=== PATIENT | female | born 1945 | race Caucasian/White ===

== ENCOUNTER 2020-09-24 12:42 | Inpatient (IN) | payer MEDICARE, SELFPAY ==
[2020-09-24] VITALS (10 sets, daily range): BP systolic 141–195; BP diastolic 68–101; PULSE 60–102; RESP 10–32; TEMP 36.8; O2SAT 55–99
--- NOTE | ~2020-09-24 | CT_ITS ---
EXAMINATION: CT BRAIN AND CHEST X-RAY. CLINICAL INFORMATION: Blurry vision, AMS. COMPARISON: None TECHNIQUE: Chest 2 views. 5 mm thin axial and reformatted 2 mm thin coronal and sagittal images of brain were obtained without contrast. 686 FINDINGS: BRAIN: There is no acute intra-axial, extra-axial bleed, masses or midline shift. There is no acute infarct in evolution. The myers to white matter since is maintained. The lateral ventricles are symmetrical in size and configuration with mild prominence. There is a punctate hypodensity in the right head of the caudate nucleus likely old small lacunar infarct. Bilateral internal carotid arteries are atherosclerotic and mildly dilated at the carotid siphon. Bone windows reveal no calvarial abnormality. No scalp soft tissue abnormality seen. Bilateral paranasal sinuses and mastoid air cells are well-aerated. CHEST X-RAY: There is mild cardiomegaly with increased pulmonary vascularity suggestive of mild CHF. The lungs are expanded and clear. There is no gross bony abnormality seen. CT/CT head/brain wo con IMPRESSION: No acute intracranial process seen. Likely small lacunar infarct right caudate nucleus. Age-related mild cerebral volume loss. Cardiomegaly with CHF.
--- NOTE | ~2020-09-24 | CT_ITS ---
EXAMINATION: CT CHEST WITHOUT CONTRAST CLINICAL INFORMATION: Hypoxia. Evaluate for pneumonia. COMPARISON: Same-day chest radiograph. TECHNIQUE: Multidetector volumetric CT imaging of the chest was done. Axial MIP volume rendering provided. Sagittal and coronal reformatted images were obtained. This CT examination was performed using dose optimization techniques as appropriate, variously including the following: *Automated exposure control *Adjustment of mA and/or kV according to patient size (this includes techniques or standardized protocols for targeted exams where dose is matched to indication/reason for exam; i.e. extremities or head) *Use of iterative reconstruction technique DLP: 502 mGy-cm FINDINGS: LION TAMER: Normal. Lungs and pleural spaces: Bibasilar dependent, subsegmental atelectasis. There is no discrete pulmonary nodule or mass. The central tracheobronchial tree is patent. There is no pleural effusion or pneumothorax. Thoracic lymph nodes: There is no hilar, mediastinal or axillary lymphadenopathy. Cardiovascular, mediastinal structures and thyroid: The heart is increased in size. Mild coronary vascular calcifications. There is no pericardial effusion. The thoracic aorta is normal in diameter without evidence of aneurysm. The main pulmonary artery is normal in caliber. The visualized thyroid gland is within normal limits. The esophagus appears partially collapsed but otherwise unremarkable. Skeletal, diaphragm and chest wall: Multilevel degenerative changes of thoracic spine. No aggressive osseous lesions. The subcutaneous tissues are unremarkable. Upper abdomen: The visualized liver and spleen are normal. The proximal stomach and visualized upper abdominal bowel loops are poorly evaluated but appear unremarkable. CT/CT chest wo con IMPRESSION: Cardiomegaly. Bibasilar subsegmental dependent atelectasis. No consolidation.
--- NOTE | 2020-09-24 13:49 | ECG_ITS ---
Test Reason : WEAKNESS Blood Pressure : / mmHG Vent. Rate : 072 BPM Atrial Rate : 072 BPM P-R Int : 168 ms QRS Dur : 086 ms QT Int : 392 ms P-R-T Axes : 046 -28 030 degrees QTc Int : 429 ms Normal sinus rhythm with sinus arrhythmia Possible Left atrial enlargement Borderline ECG No previous ECGs available Referred By: Lashaun Root Electronically Signed By:SUSAN BROWN
--- NOTE | 2020-09-24 13:51 | ED_ITS ---
HPI - Altered Mental Status General Chief Complaint: Altered Mental Status Stated Complaint: eye pain Time Seen by Provider: 09/24/20 13:22 Source: patient Mode of arrival: ambulatory Limitations: no limitations History of Present Illness HPI narrative: 74 yo female with pmh Of hypertension hyperlipidemia here with complaints of right eye drainage, redness and blurry vision times 48 hours. Patient denies injury or trauma. Denies contact use. Denies headache, neck pain, dizziness, weakness, nausea, vomiting. Her at bedside patient has had confusion since yesterday, missed an appointment this morning which is changed from her baseline. There was also note from of some slurred speech per nursing but the patient and the deny this. Related Data Home Medications Medication Instructions Recorded Confirmed amlodipine 10 mg PO DAILY 09/24/20 09/24/20 carvedilol 12.5 mg PO BID 09/24/20 09/24/20 lisinopril 40 mg PO DAILY 09/24/20 09/24/20 Allergies Allergy/AdvReac Type Severity Reaction Status Date / Time No Known Allergies Allergy Verified 09/24/20 12:46 Review of Systems Review of Systems: Yes all other systems are reviewed and are negative Constitutional: Constitutional: Reports no additional constitutional complaints, Denies body ache(s), Denies chills, Denies fever(s), Denies headache(s) and Denies weakness Eyes: Eyes: Reports no additional eye complaints, Denies change in vision and Reports eye discharge Comments: Redness, blurry vision ENT: Reports system reviewed and no additional complaints, except as documented, Denies dizziness, Denies headache(s), Denies nasal congestion, Denies nasal discharge and Denies neck pain Cardiovascular: Cardiovascular: Reports no additional cardiovascular complaints, Denies chest pain, Denies leg edema and Denies dyspnea Respiratory: Respiratory: Reports no additional respiratory complaints, Denies cough and Denies dyspnea Gastrointestinal: Gastrointestinal: Reports no additional gastrointestinal complaints, Denies abdominal pain, Denies diarrhea, Denies nausea and Denies vomiting Genitourinary: Genitourinary: Reports no additional female genitourinary complaints and Denies urinary incontinence Musculoskeletal: Musculoskeletal: Reports no additional musculoskeletal complaints, Denies back pain, Denies arthralgias, Denies joint swelling, Denies neck pain, Denies numbness and Denies tingling Integumentary/Breasts: Skin/Breast: Reports system reviewed and no additional complaints, except as docu and Denies rash Neurologic: Reports system reviewed and no additional complaints, except as documented, Denies Abnormal speech present, Denies dizziness, Denies head ache(s), Denies numbness, Denies tingling and Denies weakness PMFSH Past Medical History Attestation statement: The following information was validated with the patient. Source: old records reviewed and nursing notes reviewed Medical History High cholesterol Hypertension Social History Social History Alcohol intake: never Smoking Status: Never smoker Use of substances other than those prescribed or required for medical reasons: No Advance Directives: Yes Advance Directives Information Provided: Yes Advance Directives on File: No Physical Exam Vital Signs: Vital Signs: Last Vital Signs Temp 98.3 F 09/24/20 12:44 Pulse 64 09/24/20 20:02 Resp 24 H 09/24/20 20:02 BP 157/76 H 09/24/20 20:02 Pulse Ox 96 09/24/20 20:02 Body Mass Index 0.4 Const: Other: Has been states some confusion the patient is oriented x3 Orientation/consciousness: oriented to person, oriented to place and oriented to time Limitations: no limitations HENMT: Head: Yes normal to inspection Ears: hearing grossly normal bilaterally General nose exam: Normal external nose present Face and sinus: Yes normal facial exam Mouth: Normal oral and palatal mucosa present Throat: Yes posterior oropharynx normal Eyes: Other: IOP right eye 11, left eye 13 General: appearance normal, both eyes and all related structures Visual Tripp: abnormal by confrontation (Lef t visual field normal. Right eye visual field blurry all tripp) Alignment and Position: alignment normal Periorbital: periorbital findings normal Eyelids: Yes eyelid abnormality (Erythema and swelling over the upper and lower eyelid) Conjunctivae: conjunctival abnormal (Erythema, swelling, injection, right, purulent copious drainage ) Sclerae: scleral abnormal (Swelling right) Corneas: corneas normal and fluorescein used (No corneal abrasion or foreign body) Pupils: Equal, round and reactive pupils present EOM: EOMs intact bilaterally Direct Ophthalmoscopy: normal light reflex, no photophobia, no papilledema and anterior chamber abnormal Neck: Neck: Yes normal visual inspection Chest: Chest palpation & inspection: normal inspection of the chest Resp: Effort & Inspection: normal respiratory effort Auscultation: clear to auscultation bilaterally Cardio: Rate: regular rate Rhythm: regular rhythm Peripheral pulses: Peripheral pulses 2+ throughout GI: Inspection: Yes normal to inspection Palpation (GI): Soft to palpation and nontender Auscultation: normal bowel sounds Back/Spine/Pelvis: Thoracic/Lumbar Spine: thoracic and lumbar spine normal to inspection Skin: Other: fungal rash under bilateral breast General skin exam: no rashes or lesions noted Neuro: General: oriented to person, oriented to place and oriented to time Cranial nerves: Yes Equal, round and reactive pupils present, Yes Bilaterally intact EOM present, Yes Nystagmus not present, Yes Normal facial strength present and Yes Midline tongue present Cognition (Neuro): normal cognition Speech: No Abnormal speech present Gait exam (Neuro): Normal gait present (slow but steady) Motor exam (neuro): 5/5 motor strength present throughout and Pronator motor function not present Sensory Exam: Normal double simultaneous stimulation for sensation Coordination: [id number] test normal, [id number] test normal and tandem gait normal Extrem: General: Yes normal to inspection, Yes no calf tenderness and Yes edema (1 + bilaterally. ) NIH Stroke Scale Internal: Initial- Upon Arrival Level of Consciousness: Alert Level of Consciousness Questions: Answers both questions correctly Level of Consciousness Commands: Performs both tasks correctly Best Gaze: Normal Visual: Partial hemianopia (blurriness in right eye ) Facial Palsy: Normal Motor Arm (Right): No drift Motor Arm (Left): No drift Motor Leg (Right): No drift Motor Leg (Left): No drift Limb Ataxia: Absent Sensory: Normal Best Language: No aphasia Dysarthia: Normal Extinction and Inattention: No abnormality Score: 1 Course Course Course Narrative: 74-year-old female with a past medical history of hypertension hyperlipidemia here with complaints of right eye blurriness, drainage and injection times 48 hours. Per patient has been confused over the last 48 hours which is changed from her baseline. On exam the patient is neurologically intact with no overt deficits. She does have a exam which is consistent with conjunctival injection, cerebral edema, copious drainage from the right eye with local erythema and swelling of the ey elid. Consistent with conjunctivitis. Low concern for orbital cellulitis with normal EOM. Patient tells me that she has some blurry vision in all visual tripp but is able to see my hand (fingers are unclear). ?from underlying conjunctivitis which seems more likely however with concerns from for AMS could consider acute cva. Patient is outside window for TPA. NIH 1 for visual change. Low concern for systemic infection with no leukocytosis or fever. Will need labs including blood cultures and lactic acid, chest x-ray, CT head, UA, EKG, orthostatic vital signs. 1515-nursing called me into the room as when they were doing her vital signs and noticed her oxygen saturation to be 54% with a good pleth. The patient has some mild cyanosis around her lips. She is noted have some mild tachypnea but denies feeling short of breath. She does me she has had some dyspnea on exertion for the last few weeks to months. Her chest x-ray is consistent with some mild cardiomegaly and congestion and she has a BNP of 383. No history of CHF but likely new diagnosis. Patient improved with supplemental oxygen. Will have respiratory therapy obtain ABG. Will give 40 mg of Lasix IV. COVID negative. Pending additional lab. 1615- ABG consistent with respiratory acidosis. Patient placed on BiPAP 18/5 at 50%. Spoke to Dr Jc for admission. 1720-discussion with Dr. Jc recommended CT chest, rsv/flu swab, montoya catheter for fluid management. Will admit patient and further follow. Labs show troponin which is elevated but no delta so less likely ACS. AMS for the last 24-48 hrs likely secondary to hypoxia at home and not underlying CVA. Oriented x3 here with no focal neurological deficits. MDM - Altered Mental Status MDM Narrative Medical decision making narrative: Conjunctivitis, orbital cellulitis, periorbital cellulitis, CVA versus ICH, underlying infection (pna, uti, viral syndrome), electrolyte abnormality, anemia, ACS Medical Records Attestation: I reviewed the patient's medical records. Lab Data Attestation: I reviewed the patient's lab results. Result diagrams: 09/24/20 14:34 09/24/20 16:37 Labs: Lab Results 09/24/20 09/24/20 09/24/20 Range/Units 14:34 14:34 14:34 WBC 8.3 (4.8-10.8) X10*3/uL RBC 5.36 (4.20-5.50) X10*6/uL Hgb 15.2 (12.0-16.0) g/dl Hct 52.3 H (37-47) % MCV 97.6 (80-98) fL MCH 28.4 (27.0-33.0) pg MCHC 29.1 L (31.0-35.0) g/dl RDW 14.9 (11.0-16.0) % Plt Count 111 L (160-400) X10*3/uL MPV 11.4 (9.4-12.3) fL Immature Gran % (Auto) 0.4 (0.0-0.4) % Neut % (Auto) 73.8 H (45-73) % Lymph % (Auto) 13.7 L (20-40) % [place] % (Auto) 11.3 H (2-11) % Eos % (Auto) 0.4 (0-4) % Baso % (Auto) 0.4 (0-2) % Lymph # (Auto) 1.1 L (1.2-4.9) X10*3/uL [place] # (Auto) 0.9 (0.1-1.2) X10*3/uL Eos # (Auto) 0.0 (0.0-0.4) X10*3/uL Baso # (Auto) 0.0 (0.0-0.2) X10*3/uL Abs Immat Gran (auto) 0.03 (0.00-0.03) X10*3/uL Absolute Neuts (auto) 6.2 (2.0-8.3) X10*3/uL Absolute Nucleated RBC 0.000 (0.0-0.012) X10*3/uL Nucleated RBC % (auto) 0.0 (0.0-0.2) /100WBC PT 11.7 (10.8-13.0) SEC INR 1.0 (0.9-1.1) O2 Saturation % ABG pH at Pt Temp (7.35-7.45) ABG pH (Temp Correct) (7.35-7.45) ABG pCO2 at Pt Temp (32-45) mmHg ABG pCO2 (Temp Corrct (32-45) mmHg ABG pO2 at Pt Temp (83-108) mmHg ABG pO2 (Temp Correct (83-108) ABG HCO3 (22-26) mmol/L ABG Base Excess (Actual) mmol/L Sodium (135-145) mmol/L Potassium (3.3-5.1) mmol/L Chloride (96-108) mmol/L Carbon Dioxide (22-29) mmol/L Anion Gap (12-20) BUN (9-16) mg/dL Creatinine (0.5-1.4) mg/dL Estim Creat Clear Calc Estimated GFR Random Glucose (60-115) mg/dL Lactic Acid (0.5-2.0) mmol/L Calcium (8.4-10.2) mg/dL Magnesium (1.6-2.6) mg/dL Total Bilirubin (0.0-1.0) mg/dL Direct Bilirubin (0.0-0.5) mg/dL AST (5-31) U/L ALT (0-31) U/L Alkaline Phosphatase (39-117) U/L Troponin I High Sens 116.4 H (<3.5-17.0) ng/L B-Natriuretic Peptide (<100) pg/mL Total Protein (6.5-8.0) g/dL Albumin (3.5-5.0) g/dL Urine Color Urine Appearance Urine pH (5.0-8.0) Ur Specific [place] (1.005-1.025) Urine Protein (NEG-TRACE) MG/DL Urine Glucose (UA) (NEG) MG/DL Urine Ketones (NEG) MG/DL Urine Blood (NEG) Urine Nitrite (NEG) Ur Leukocyte Esterase (NEG) Urine RBC (0) /HPF Urine WBC (0-4) /HPF Ur Squamous Epith Cells /LPF Urine Bacteria /LPF Granular Casts /LPF Coronavirus (PCR) (Negative) COVID-19 (OBEY) (Negative) COVID-19 Clin Com Influenza Type A (PCR) (Negative) Influenza Type B (PCR) (Negative) RSV RNA Qual (PCR) (Negative) 09/24/20 09/24/20 09/24/20 Range/Units 14:34 14:34 14:39 WBC (4.8-10.8) X10*3/uL RBC (4.20-5.50) X10*6/uL Hgb (12.0-16.0) g/dl Hct (37-47) % MCV (80-98) fL MCH (27.0-33.0) pg MCHC (31.0-35.0) g/dl RDW (11.0-16.0) % Plt Count (160-400) X10*3/uL MPV (9.4-12.3) fL Immature Gran % (Auto) (0.0-0.4) % Neut % (Auto) (45-73) % Lymph % (Auto) (20-40) % [place] % (Auto) (2-11) % Eos % (Auto) (0-4) % Baso % (Auto) (0-2) % Lymph # (Auto) (1.2-4.9) X10*3/uL [place] # (Auto) (0.1-1.2) X10*3/uL Eos # (Auto) (0.0-0.4) X10*3/uL Baso # (Auto) (0.0-0.2) X10*3/uL Abs Immat Gran (auto) (0.00-0.03) X10*3/uL Absolute Neuts (auto) (2.0-8.3) X10*3/uL Absolute Nucleated RBC (0.0-0.012) X10*3/uL Nucleated RBC % (auto) (0.0-0.2) /100WBC PT (10.8-13.0) SEC INR (0.9-1.1) O2 Saturation % ABG pH at Pt Temp (7.35-7.45) ABG pH (Temp Correct) (7.35-7.45) ABG pCO2 at Pt Temp (32-45) mmHg ABG pCO2 (Temp Corrct (32-45) mmHg ABG pO2 at Pt Temp (83-108) mmHg ABG pO2 (Temp Correct (83-108) ABG HCO3 (22-26) mmol/L ABG Base Excess (Actual) mmol/L Sodium (135-145) mmol/L Potassium (3.3-5.1) mmol/L Chloride (96-108) mmol/L Carbon Dioxide (22-29) mmol/L Anion Gap (12-20) BUN (9-16) mg/dL Creatinine (0.5-1.4) mg/dL Estim Creat Clear Calc Estimated GFR Random Glucose (60-115) mg/dL Lactic Acid 1.0 (0.5-2.0) mmol/L Calcium (8.4-10.2) mg/dL Magnesium (1.6-2.6) mg/dL Total Bilirubin (0.0-1.0) mg/dL Direct Bilirubin (0.0-0.5) mg/dL AST (5-31) U/L ALT (0-31) U/L Alkaline Phosphatase (39-117) U/L Troponin I High Sens (<3.5-17.0) ng/L B-Natriuretic Peptide 383 H (<100) pg/mL Total Protein (6.5-8.0) g/dL Albumin (3.5-5.0) g/dL Urine Color Urine Appearance Urine pH (5.0-8.0) Ur Specific [place] (1.005-1.025) Urine Protein (NEG-TRACE) MG/DL Urine Glucose (UA) (NEG) MG/DL Urine Ketones (NEG) MG/DL Urine Blood (NEG) Urine Nitrite (NEG) Ur Leukocyte Esterase (NEG) Urine RBC (0) /HPF Urine WBC (0-4) /HPF Ur Squamous Epith Cells /LPF Urine Bacteria /LPF Granular Casts /LPF Coronavirus (PCR) (Negative) COVID-19 (OBEY) Negative (Negative) COVID-19 Clin Com See Note Influenza Type A (PCR) (Negative) Influenza Type B (PCR) (Negative) RSV RNA Qual (PCR) (Negative) 09/24/20 09/24/20 09/24/20 Range/Units 15:55 16:08 16:37 WBC (4.8-10.8) X10*3/uL RBC (4.20-5.50) X10*6/uL Hgb (12.0-16.0) g/dl Hct (37-47) % MCV (80-98) fL MCH (27.0-33.0) pg MCHC (31.0-35.0) g/dl RDW (11.0-16.0) % Plt Count (160-400) X10*3/uL MPV (9.4-12.3) fL Immature Gran % (Auto) (0.0-0.4) % Neut % (Auto) (45-73) % Lymph % (Auto) (20-40) % [place] % (Auto) (2-11) % Eos % (Auto) (0-4) % Baso % (Auto) (0-2) % Lymph # (Auto) (1.2-4.9) X10*3/uL [place] # (Auto) (0.1-1.2) X10*3/uL Eos # (Auto) (0.0-0.4) X10*3/uL Baso # (Auto) (0.0-0.2) X10*3/uL Abs Immat Gran (auto) (0.00-0.03) X10*3/uL Absolute Neuts (auto) (2.0-8.3) X10*3/uL Absolute Nucleated RBC (0.0-0.012) X10*3/uL Nucleated RBC % (auto) (0.0-0.2) /100WBC PT (10.8-13.0) SEC INR (0.9-1.1) O2 Saturation 96.0 % ABG pH at Pt Temp 7.26 L (7.35-7.45) ABG pH (Temp Correct) 7.26 L (7.35-7.45) ABG pCO2 at Pt Temp 81 H* (32-45) mmHg ABG pCO2 (Temp Corrct 83 H* (32-45) mmHg ABG pO2 at Pt Temp 97 (83-108) mmHg ABG pO2 (Temp Correct 100 (83-108) ABG HCO3 37 H (22-26) mmol/L ABG Base Excess (Actual) 6.9 mmol/L Sodium 148 H (135-145) mmol/L Potassium 5.1 (3.3-5.1) mmol/L Chloride 106 (96-108) mmol/L Carbon Dioxide 35 H (22-29) mmol/L Anion Gap 12 (12-20) BUN 33 H (9-16) mg/dL Creatinine 1.01 (0.5-1.4) mg/dL Estim Creat Clear Calc 87.5 Estimated GFR 54 Random Glucose 104 (60-115) mg/dL Lactic Acid (0.5-2.0) mmol/L Calcium 10.0 (8.4-10.2) mg/dL Magnesium 2.1 (1.6-2.6) mg/dL Total Bilirubin 0.4 (0.0-1.0) mg/dL Direct Bilirubin 0.2 (0.0-0.5) mg/dL AST 34 H (5-31) U/L ALT 22 (0-31) U/L Alkaline Phosphatase 58 (39-117) U/L Troponin I High Sens (<3.5-17.0) ng/L B-Natriuretic Peptide (<100) pg/mL Total Protein 6.8 (6.5-8.0) g/dL Albumin 3.9 (3.5-5.0) g/dL Urine Color YELLOW Urine Appearance CLEAR Urine pH 5.5 (5.0-8.0) Ur Specific [place] >= 1.030 H (1.005-1.025) Urine Protein 3+ H (NEG-TRACE) MG/DL Urine Glucose (UA) NEG (NEG) MG/DL Urine Ketones NEG (NEG) MG/DL Urine Blood 2+ H (NEG) Urine Nitrite NEG (NEG) Ur Leukocyte Esterase NEG (NEG) Urine RBC 1-4 (0) /HPF Urine WBC 0 (0-4) /HPF Ur Squamous Epith Cells 2+ /LPF Urine Bacteria NONE /LPF Granular Casts 1-4 /LPF Coronavirus (PCR) (Negative) COVID-19 (OBEY) (Negative) COVID-19 Clin Com Influenza Type A (PCR) (Negative) Influenza Type B (PCR) (Negative) RSV RNA Qual (PCR) (Negative) 09/24/20 09/24/20 Range/Units 17:26 17:28 WBC (4.8-10.8) X10*3/uL RBC (4.20-5.50) X10*6/uL Hgb (12.0-16.0) g/dl Hct (37-47) % MCV (80-98) fL MCH (27.0-33.0) pg MCHC (31.0-35.0) g/dl RDW (11.0-16.0) % Plt Count (160-400) X10*3/uL MPV (9.4-12.3) fL Immature Gran % (Auto) (0.0-0.4) % Neut % (Auto) (45-73) % Lymph % (Auto) (20-40) % [place] % (Auto) (2-11) % Eos % (Auto) (0-4) % Baso % (Auto) (0-2) % Lymph # (Auto) (1.2-4.9) X10*3/uL [place] # (Auto) (0.1-1.2) X10*3/uL Eos # (Auto) (0.0-0.4) X10*3/uL Baso # (Auto) (0.0-0.2) X10*3/uL Abs Immat Gran (auto) (0.00-0.03) X10*3/uL Absolute Neuts (auto) (2.0-8.3) X10*3/uL Absolute Nucleated RBC (0.0-0.012) X10*3/uL Nucleated RBC % (auto) (0.0-0.2) /100WBC PT (10.8-13.0) SEC INR (0.9-1.1) O2 Saturation % ABG pH at Pt Temp (7.35-7.45) ABG pH (Temp Correct) (7.35-7.45) ABG pCO2 at Pt Temp (32-45) mmHg ABG pCO2 (Temp Corrct (32-45) mmHg ABG pO2 at Pt Temp (83-108) mmHg ABG pO2 (Temp Correct (83-108) ABG HCO3 (22-26) mmol/L ABG Base Excess (Actual) mmol/L Sodium (135-145) mmol/L Potassium (3.3-5.1) mmol/L Chloride (96-108) mmol/L Carbon Dioxide (22-29) mmol/L Anion Gap (12-20) BUN (9-16) mg/dL Creatinine (0.5-1.4) mg/dL Estim Creat Clear Calc Estimated GFR Random Glucose (60-115) mg/dL Lactic Acid (0.5-2.0) mmol/L Calcium (8.4-10.2) mg/dL Magnesium (1.6-2.6) mg/dL Total Bilirubin (0.0-1.0) mg/dL Direct Bilirubin (0.0-0.5) mg/dL AST (5-31) U/L ALT (0-31) U/L Alkaline Phosphatase (39-117) U/L Troponin I High Sens 120.1 H (<3.5-17.0) ng/L B-Natriuretic Peptide (<100) pg/mL Total Protein (6.5-8.0) g/dL Albumin (3.5-5.0) g/dL Urine Color Urine Appearance Urine pH (5.0-8.0) Ur Specific [place] (1.005-1.025) Urine Protein (NEG-TRACE) MG/DL Urine Glucose (UA) (NEG) MG/DL Urine Ketones (NEG) MG/DL Urine Blood (NEG) Urine Nitrite (NEG) Ur Leukocyte Esterase (NEG) Urine RBC (0) /HPF Urine WBC (0-4) /HPF Ur Squamous Epith Cells /LPF Urine Bacteria /LPF Granular Casts /LPF Coronavirus (PCR) NEGATIVE (Negative) COVID-19 ([facility]BEY) (Negative) COVID-19 Clin Com Influenza Type A (PCR) NEGATIVE (Negative) Influenza Type B (PCR) NEGATIVE (Negative) RSV RNA Qual (PCR) NEGATIVE (Negative) Imaging Data Chest x-ray: Attestation: I personally reviewed and interpreted this imaging study as follows: Radiologist's impression: CHEST X-RAY: There is mild cardiomegaly with increased pulmonary vascularity suggestive of mild CHF. The lungs are expanded and clear. There is no gross bony abnormality seen. CT scan - head: Attestation: I personally reviewed and interpreted this imaging study as f alcon: Radiologist's impression: FINDINGS: BRAIN: There is no acute intra-axial, extra-axial bleed, masses or midline shift. There is no acute infarct in evolution. The myers to white matter since is maintained. The lateral ventricles are symmetrical in size and configuration with mild prominence. There is a punctate hypodensity in the right head of the caudate nucleus likely old small lacunar infarct. Bilateral internal carotid arteries are atherosclerotic and mildly dilated at the carotid siphon. Bone windows reveal no calvarial abnormality. No scalp soft tissue abnormality seen. Bilateral paranasal sinuses and mastoid air cells are well-aerated. ct chest: Attestation: I personally reviewed and interpreted this imaging study as follows: Radiologist's impression: MPRESSION: Cardiomegaly. Bibasilar subsegmental dependent atelectasis. No consolidation. ECG Data ECG #1: Attestation: I personally reviewed and interpreted this ECG as follows: ECG interpretation date: 09/24/20 ECG interpretation time: 14:15 Interpretation: Normal sinus rhythm with sinus arrhythmia, rate of 72, normal CO, normal QRS, QTC 429, flipped T-wave in lead 1 only Critical Care Time Critical Care Time Critical Care Time: Yes Total Critical Care Time: 60 Attestation: Re-evaluations, discussion with candles pourer, management of respiratory acidosis with noninvasive ventilation Discharge Plan Discharge Clinical Impression: Acute bacterial conjunctivitis, Hypoxia, Acute dyspnea, Elevated brain kenney riuretic peptide (BNP) level, Elevated troponin Patient Disposition: Admitted As Inpatient
[2020-09-24] MEDS: Tetracaine HCl/PF 0.5% Oph Sol 4 ML DROPS 1 DROP EYE-RIGHT (14:24)
[2020-09-24] MEDS: Fluorescein Sodium STRIP 1 STRIP EYE-RIGHT (14:24)
[2020-09-24 14:43] LABS: MANUAL DIFF FLAG NO
[2020-09-24 14:47] LABS: Basophils Percent Auto 0.4 % (0-2); Eosinophils Percent Auto 0.4 % (0-4); Hematocrit 52.3 % (37-47); Hemoglobin 15.2 g/dl (12.0-16.0); Imm Gran Abs Auto 0.03 X10*3/uL (0.00-0.03); Imm Gran Pct Auto 0.4 % (0.0-0.4); Lymphocytes Absolute Auto 1.1 X10*3/uL (1.2-4.9); Lymphocytes Percent Auto 13.7 % (20-40); Mean Corpuscular HGB Conc 29.1 g/dl (31.0-35.0); Mean Corpuscular Hemoglobin 28.4 pg (27.0-33.0); Mean Corpuscular Volume 97.6 fL (80-98); Mean Platelet Volume 11.4 fL (9.4-12.3); Monocytes Absolute Auto 0.9 X10*3/uL (0.1-1.2); Monocytes Percent Auto 11.3 % (2-11); Neutrophils Absolute Auto 6.2 X10*3/uL (2.0-8.3); Neutrophils Percent Auto 73.8 % (45-73); Platelet Count 111 X10*3/uL (160-400); Red Blood Count 5.36 X10*6/uL (4.20-5.50); Red Cell Distribution Width 14.9 % (11.0-16.0); White Blood Count 8.3 X10*3/uL (4.8-10.8)
[2020-09-24 14:56] LABS: Prothrombin Time 11.7 SEC (10.8-13.0)
[2020-09-24 15:09] LABS: B Type Natriuretic Peptide 383 pg/mL (<100)
[2020-09-24 15:11] LABS: Troponin-I High Sensitivity 116.4 ng/L (<3.5-17.0)
[2020-09-24 15:14] LABS: COVID-19 Test Negative (Negative)
--- NOTE | 2020-09-24 15:22 | PC.NURSE ---
pct alerting this rn to pt spo2 50-55% on ra. pt denies feeling sob, denies cp. pt appears to have cyanotic lips. placed on 4l nc w little improvement, placed on nb 100% o2 and pt slowly up to 96-97%. alert and oriented, second iv established. awaiting further orders. provider aware and at bedside.
[2020-09-24] MEDS: Furosemide 40 MG/4 ML VIAL IVPUSH (15:56)
[2020-09-24 16:07] LABS: ABG Refer to POC result
[2020-09-24 16:08] LABS: ABG Base Excess 6.9 mmol/L; ABG HCO3 37 mmol/L (22-26); ABG pCO2 81 mmHg (32-45); ABG pCO2 TC 83 mmHg (32-45); ABG pH 7.26 (7.35-7.45); ABG pH TC 7.26 (7.35-7.45); ABG pO2 97 mmHg (83-108); ABG pO2 TC 100 (83-108)
[2020-09-24 16:20] LABS: Glucose Urine UA NEG (NEG); Leukocyte Esterase Urine NEG (NEG); Nitrite Urine NEG (NEG); PH 5.5 (5.0-8.0); Specific Gravity - Urine >= 1.030 (1.005-1.025); Urine Blood 2+ (NEG); Urine Ketones NEG (NEG); Urine Protein 3+ MG/DL (NEG-TRACE)
[2020-09-24 16:34] LABS: Appearance Urine CLEAR; Color Urine YELLOW
[2020-09-24 17:05] LABS: Alanine Aminotransferase 22 U/L (0-31); Albumin Level 3.9 g/dL (3.5-5.0); Alkaline Phosphatase 58 U/L (39-117); Anion Gap 12 (12-20); Aspartate Amino Transferase 34 U/L (5-31); Bilirubin Direct 0.2 mg/dL (0.0-0.5); Bilirubin Total 0.4 mg/dL (0.0-1.0); Blood Urea Nitrogen 33 mg/dL (9-16); Carbon Dioxide 35 mmol/L (22-29); Chloride 106 mmol/L (96-108); Creatinine Clr Calc Pharmacy 87.5; Estimated Glomerular Filt Rate 54; Glucose Random 104 mg/dL (60-115); Magnesium 2.1 mg/dL (1.6-2.6); Potassium 5.1 mmol/L (3.3-5.1); Sodium 148 mmol/L (135-145); Total Protein 6.8 g/dL (6.5-8.0)
[2020-09-24 17:05] LABS: Squamous Epithelial Cell Urine 2+ /LPF; WBC Urine 0 /HPF (0-4)
--- NOTE | 2020-09-24 17:07 | PC.NURSE ---
pipe insulator at bedside for fast echo. plan for montoya, ct chest and resp panel.
[2020-09-24] MEDS: Erythromycin Base 0.5% Oph Oin 1 GM TUBE 1 CM EYE-RIGHT (18:13)
[2020-09-24] MEDS: Heparin Sodium,Porcine 5,000 UNIT/ML VIAL 5000 UNIT SUBCUT ×2 (18:13→22:14)
[2020-09-24 18:24] LABS: Troponin-I High Sensitivity 120.1 ng/L (<3.5-17.0)
[2020-09-24 18:31] LABS: Influenza A PCR NEGATIVE (Negative); Influenza B PCR NEGATIVE (Negative); Resp Syncy Virus RNA Qual PCR NEGATIVE (Negative); SARS COV2 PCR INHOUSE NEGATIVE (Negative)
--- NOTE | 2020-09-24 19:39 | PC.NURSE ---
paint technician at bedside, unable to obtain labs x 2. RT called for CT scan as pt remains on bipap at this time.
[2020-09-24] MEDS: Albuterol/Iprat 2.5/0.5MG 3 ML AMPUL.NEB INHALE (19:48)
--- NOTE | 2020-09-24 19:50 | PC.NURSE ---
Repeat labs obtained, RT at bedside for ABG. Plan for a CT as soon as CT is available. VSS at this time. Family at bedside, continue to monitor.
[2020-09-24 20:07] LABS: ABG Base Excess 8.7 mmol/L; ABG HCO3 37 mmol/L (22-26); ABG pCO2 71 mmHg (32-45); ABG pCO2 TC 70 mmHg (32-45); ABG pH 7.33 (7.35-7.45); ABG pH TC 7.33 (7.35-7.45); ABG pO2 92 mmHg (83-108); ABG pO2 TC 91 (83-108)
[2020-09-24 20:07] LABS: ABG Refer to POC result
[2020-09-24 20:29] LABS: B Type Natriuretic Peptide 350 pg/mL (<100)
[2020-09-24 20:37] LABS: Troponin-I High Sensitivity 98.5 ng/L (<3.5-17.0)
--- NOTE | 2020-09-24 20:55 | PC.NURSE ---
Off to CT on hospital bed, per RT to place pt on a NRB for CT.
--- NOTE | 2020-09-24 21:03 | PC.NURSE ---
Pt returns from CT. RT called to place pt back on bipap. Grading Machine Operator at bedside for eval.
[2020-09-24 21:12] LABS: Erythrocyte Sedimentation Rate 5 MM/HR (0-20)
[2020-09-24] MEDS: Famotidine/PF 20 MG/2 ML VIAL IVPUSH (22:14)
--- NOTE | 2020-09-24 22:44 | PM.CCHP ---
History of Present Illness Date of Service: 09/24/20 <Yanira Sotelo PA-C - Last Filed: 09/24/20 23:14> Chief Complaint: AMS <Yanira Sotelo PA-C - Last Filed: 09/24/20 23:14> Patient is a 74-year-old female with a PMHX of HTN, HLD who came to the ER today with complaints right eye drainage, redness some blurry vision for the past 2 days. Patient denies trauma or injury. Patient states she does not use contacts. Her was at the bedside an stated that the patient has been confused since yesterday and missed an appointment this morning which is a change from her baseline. There is a nursing note that the noted some slurred speech from his but both the patient and her denied this. Physical exam by the ED CARDIOVASCULAR DISEASE SPECIALIST was unremarkable except for the right eye conjunctiva injection, drainage but no overt cellulitis. Patient was neurologically fully intact with no deficits. At that point, patient's vitals were rechecked and she was noted to be hypoxic With an SpO2 at 54% with a good pleth, on room air. CARDIOVASCULAR DISEASE SPECIALIST noted patient had mild cyanosis around her lips and some tachypnea but denies feeling short of breath currently but states she has had some GRAVES over the past few months. Physical exam by the ED CARDIOVASCULAR DISEASE SPECIALIST was remarkable for the right eye conjunctiva injection and scleral swelling, drainage but no overt cellulitis. IOP right eye 11, left eye 13, no corneal abrasion. Patient was neurologically fully intact with no deficits. 1+ pitting edema bilaterally, fungal rash under bilateral breasts Labs remarkable for sodium of 148, carbon dioxide of 35, BUN 33 Patient was given 40 of Lasix, ABG showed respiratory acidosis (7.26/81/97/100/37/6.9) patient was placed on BiPAP at 8/15 at 50%. Patient is COVID negative, will get CT of the chest, RSV/flu swab and a Valdivia catheter for fluid management. Trend troponin as first one was elevated at 120.1. Pt will be brought to the ICU for further management. <Yanira Sotelo PA-C - Last Filed: 09/24/20 23:14> Review of Systems Review of Systems: Yes all other systems are reviewed and are negative <Yanira Sotelo PA-C - Last Filed: 09/24/20 23:14> [facility] Past Medical History Medical History: Medical History High cholesterol Hypertension <Yanira Sotelo PA-C - Last Filed: 09/24/20 23:14> Social History Social History: Social History (Updated 09/24/20 @ 23:23 by Portia Barrera RN) Household Members: Spouse Housing: House Are you a primary care center manager to a significant other at home: No Do you presently have visiting nurse or other home services: No Alcohol intake: never Smoking Status: Never smoker Use of substances other than those prescribed or required for medical reasons: No Currently Displaying Signs/Symptoms of Drug Intoxication Withdrawal: No Have you been hit, kicked, punched, or otherwise hurt by someone within the past year? If so, by whom?: No Do you feel safe in your current relationship?: No Is there a partner from a previous relationship who is making you feel unsafe now?: No Are you made to feel afraid or neglected: No Advance Directives: Yes Advance Directives Information Provided: No Advance Directives on File: No Advance Directives Date on File: 09/24/20 Do you have thoughts of harming others: None Do you have a plan to hurt others: No Plan Recently lost weight without trying: No <Yanira Sotelo PA-C - Last Filed: 09/24/20 23:14> Meds Allergies/Adverse reactions: Allergies Allergy/AdvReac Type Severity Reaction Status Date / Time No Known Allergies Allergy Verified 09/24/20 12:46 <Yanira Sotelo PA-C - Last Filed: 09/24/20 23:14> Active Medications: Current Medications Generic Name Dose Route Start Last Admin Trade Name Freq PRN Reason Stop Dose Admin Albuterol/Ipratropium 3 ml 09/24/20 20:00 09/24/20 19:48 Albuterol/Iprat 2.5/0.5mg 3 Ml Ampul.Neb INHALE 3 ml RQ4H CANDIE Administration Erythromycin 1 cm 09/24/20 18:00 09/24/20 18:13 Erythromycin Base 0.5% Oph Oin 1 Gm Tube EYE-RIGHT 1 cm BID@0800,1800 CANDIE Administration Famotidine 20 mg 09/24/20 21:00 09/24/20 22:14 Famotidine/Pf 20 Mg/2 Ml Vial IVPUSH 20 mg BID CANDIE Administration Heparin Sodium (Porcine) 5,000 unit 09/24/20 18:00 09/24/20 22:14 Heparin Sodium,Porcine 5,000 Unit/Ml Vial SUBCUT 5,000 unit Q8H CANDIE Administration Nystatin 1 appl 09/25/20 09:00 Nystatin Powder 15 Gm Bottle TOPICAL BID [facility] Protocol Pharmacy Consult 1 each 09/24/20 13:49 Consult Rx Perform Med Rec MISCELLANE ONCE PRN Consult order <LYNN Farah Last Filed: 09/24/20 23:14> Home medications: Home Medications Medication Instructions Recorded Confirmed Last Taken Type amlodipine 10 mg PO DAILY 09/24/20 09/24/20 09/23/20 History carvedilol 12.5 mg PO BID 09/24/20 09/24/20 09/23/20 History lisinopril 40 mg PO DAILY 09/24/20 09/24/20 09/23/20 History <Yanira Sotelo PA-C - Last Filed: 09/24/20 23:14> Physical Exam Vital Signs: Vital Signs: Last Vital Signs Temp 98.3 F 09/24/20 12:44 Pulse 102 H 09/24/20 22:00 Resp 27 H 09/24/20 22:00 BP 149/77 H 09/24/20 22:00 Pulse Ox 96 09/24/20 22:00 Body Mass Index 0.4 <Yanira Sotelo PA-C - Last Filed: 09/24/20 23:14> Const: General: cooperative, healthy appearing, comfortable and no acute distress <LYNN Farah Last Filed: 09/24/20 23:14> Nutritional Appearance: obese <LYNN Farah Last Filed: 09/24/20 23:14> Orientation/consciousness: patient oriented x3 <LYNN Farah Last Filed: 09/24/20 23:14> Limitations: no limitations <LYNN Farah Last Filed: 09/24/20 23:14> HENMT: Head: Yes normal to inspection, Yes normocephalic and Yes atraumatic <Yanira Sotelo PA-C - Last Filed: 09/24/20 23:14> Ears: hearing grossly normal bilaterally <Yanira Sotelo PA-C - Last Filed: 09/24/20 23:14> General nose exam: Normal external nose present <SHANTANU FarahC - Last Filed: 09/24/20 23:14> Face and sinus: Yes normal facial exam <SHANTANU FarahC - Last Filed: 09/24/20 23:14> Eyes: Alignment and Position: alignment normal <Yanira Sotelo PA-C - Last Filed: 09/24/20 23:14> Eyelids: Yes eyelid abnormality (swelling right eye) <SHANTANU FarahC - Last Filed: 09/24/20 23:14> Conjunctivae: conjunctival abnormal right conjunctival injection and discharge <SHANTANU FarahaDvid - Last Filed: 09/24/20 23:14> Pupils: Equal, round and reactive pupils present <SHANTANU FarahC - Last Filed: 09/24/20 23:14> EOM: EOMs intact bilaterally <Yanira Sotelo PA-C - Last Filed: 09/24/20 23:14> Neck: Neck: Yes normal visual inspection and Yes full ROM <SHANTANU FarahDavid - Last Filed: 09/24/20 23:14> Resp: Effort & Inspection: normal respiratory effort and able to speak in complete sentences <Yanira Sotelo PA-C - Last Filed: 09/24/20 23:14> Auscultation: clear to auscultation bilaterally <Yanira Sotelo PA-C - Last Filed: 09/24/20 23:14> Cardio: Rate: regular rate <Yanira Sotelo PA-C - Last Filed: 09/24/20 23:14> Rhythm: regular rhythm <Yanira Sotelo PA-C - Last Filed: 09/24/20 23:14> GI: Inspection: Yes obesity <Yanira Sotelo PA-C - Last Filed: 09/24/20 23:14> Palpation (GI): Soft to palpation and nontender <Yanira Sotelo PA-C - Last Filed: 09/24/20 23:14> Neuro: General: patient oriented x3 <Yanira Sotelo PA-C - Last Filed: 09/24/20 23:14> Cranial nerves: Yes Equal, round and reactive pupils present <Yanira Sotelo PA-C - Last Filed: 09/24/20 23:14> Extrem: General: Yes pedal edema (1+ pitting bilateral) <Yanira Soetlo PA-C - Last Filed: 09/24/20 23:14> Results Labs CBC and Chem 7: : 09/25/20 05:36 09/25/20 05:36 <Yanira Sotelo PA-C - Last Filed: 09/24/20 23:14> Labs: Laboratory Results - last 24 hr 09/24/20 09/24/20 09/24/20 14:34 14:34 14:34 MCV 97.6 MCH 28.4 MCHC 29.1 L RDW 14.9 Plt Count 111 L MPV 11.4 Immature Gran % (Auto) 0.4 Neut % (Auto) 73.8 H Lymph % (Auto) 13.7 L [place] % (Auto) 11.3 H Eos % (Auto) 0.4 Baso % (Auto) 0.4 Lymph # (Auto) 1.1 L [place] # (Auto) 0.9 Eos # (Auto) 0.0 Baso # (Auto) 0.0 Abs Immat Gran (auto) 0.03 Absolute Neuts (auto) 6.2 Absolute Nucleated RBC 0.000 Nucleated RBC % (auto) 0.0 ESR PT 11.7 INR 1.0 O2 Saturation ABG pH at Pt Temp ABG pH (Temp Correct) ABG pCO2 at Pt Temp ABG pCO2 (Temp Corrct ABG pO2 at Pt Temp ABG pO2 (Temp Correct ABG HCO3 ABG Base Excess (Actual) Anion Gap Estim Creat Clear Calc Estimated GFR Random Glucose Lactic Acid Calcium Magnesium Total Bilirubin Direct Bilirubin AST ALT Alkaline Phosphatase Troponin I High Sens 116.4 H B-Natriuretic Peptide Total Protein Albumin Urine Color Urine Appearance Urine pH Ur Specific [place] Urine Protein Urine Glucose (UA) Urine Ketones Urine Blood Urine Nitrite Ur Leukocyte Esterase Urine RBC Urine WBC Ur Squamous Epith Cells Urine Bacteria Granular Casts Coronavirus (PCR) COVID-19 (OBEY) COVID-19 Clin Com Influenza Type A (PCR) Influenza Type B (PCR) RSV RNA Qual (PCR) 09/24/20 09/24/20 09/24/20 14:34 14:34 14:39 MCV MCH MCHC RDW Plt Count MPV Immature Gran % (Auto) Neut % (Auto) Lymph % (Auto) [place] % (Auto) Eos % (Auto) Baso % (Auto) Lymph # (Auto) [place] # (Auto) Eos # (Auto) Baso # (Auto) Abs Immat Gran (auto) Absolute Neuts (auto) Absolute Nucleated RBC Nucleated RBC % (auto) ESR PT INR O2 Saturation ABG pH at Pt Temp ABG pH (Temp Correct) ABG pCO2 at Pt Temp ABG pCO2 (Temp Corrct ABG pO2 at Pt Temp ABG pO2 (Temp Correct ABG HCO3 ABG Base Excess (Actual) Anion Gap Estim Creat Clear Calc Estimated GFR Random Glucose Lactic Acid 1.0 Calcium Magnesium Total Bilirubin Direct Bilirubin AST ALT Alkaline Phosphatase Troponin I High Sens B-Natriuretic Peptide 383 H Total Protein Albumin Urine Color Urine Appearance Urine pH Ur Specific [place] Urine Protein Urine Glucose (UA) Urine Ketones Urine Blood Urine Nitrite Ur Leukocyte Esterase Urine RBC Urine WBC Ur Squamous Epith Cells Urine Bacteria Granular Casts Coronavirus (PCR) COVID-19 (OBEY) Negative COVID-19 Clin Com See Note Influenza Type A (PCR) Influenza Type B (PCR) RSV RNA Qual (PCR) 09/24/20 09/24/20 09/24/20 15:55 16:08 16:37 MCV MCH MCHC RDW Plt Count MPV Immature Gran % (Auto) Neut % (Auto) Lymph % (Auto) [place] % (Auto) Eos % (Auto) Baso % (Auto) Lymph # (Auto) [place] # (Auto) Eos # (Auto) Baso # (Auto) Abs Immat Gran (auto) Absolute Neuts (auto) Absolute Nucleated RBC Nucleated RBC % (auto) ESR PT INR O2 Saturation 96.0 ABG pH at Pt Temp 7.26 L ABG pH (Temp Correct) 7.26 L ABG pCO2 at Pt Temp 81 H* ABG pCO2 (Temp Corrct 83 H* ABG pO2 at Pt Temp 97 ABG pO2 (Temp Correct 100 ABG HCO3 37 H ABG Base Excess (Actual) 6.9 Anion Gap 12 Estim Creat Clear Calc 87.5 Estimated GFR 54 Random Glucose 104 Lactic Acid Calcium 10.0 Magnesium 2.1 Total Bilirubin 0.4 Direct Bilirubin 0.2 AST 34 H ALT 22 Alkaline Phosphatase 58 Troponin I High Sens B-Natriuretic Peptide Total Protein 6.8 Albumin 3.9 Urine Color YELLOW Urine Appearance CLEAR Urine pH 5.5 Ur Specific [place] >= 1.030 H Urine Protein 3+ H Urine Glucose (UA) NEG Urine Ketones NEG Urine Blood 2+ H Urine Nitrite NEG Ur Leukocyte Esterase NEG Urine RBC 1-4 Urine WBC 0 Ur Squamous Epith Cells 2+ Urine Bacteria NONE Granular Casts 1-4 Coronavirus (PCR) COVID-19 (OBEY) COVID-19 Clin Com Influenza Type A (PCR) Influenza Type B (PCR) RSV RNA Qual (PCR) 09/24/20 09/24/20 09/24/20 17:26 17:28 19:50 MCV MCH MCHC RDW Plt Count MPV Immature Gran % (Auto) Neut % (Auto) Lymph % (Auto) [place] % (Auto) Eos % (Auto) Baso % (Auto) Lymph # (Auto) [place] # (Auto) Eos # (Auto) Baso # (Auto) Abs Immat Gran (auto) Absolute Neuts (auto) Absolute Nucleated RBC Nucleated RBC % (auto) ESR PT INR O2 Saturation ABG pH at Pt Temp ABG pH (Temp Correct) ABG pCO2 at Pt Temp ABG pCO2 (Temp Corrct ABG pO2 at Pt Temp ABG pO2 (Temp Correct ABG HCO3 ABG Base Excess (Actual) Anion Gap Estim Creat Clear Calc Estimated GFR Random Glucose Lactic Acid Calcium Magnesium Total Bilirubin Direct Bilirubin AST ALT Alkaline Phosphatase Troponin I High Sens 120.1 H 98.5 H B-Natriuretic Peptide Total Protein Albumin Urine Color Urine Appearance Urine pH Ur Specific [place] Urine Protein Urine Glucose (UA) Urine Ketones Urine Blood Urine Nitrite Ur Leukocyte Esterase Urine RBC Urine WBC Ur Squamous Epith Cells Urine Bacteria Granular Casts Coronavirus (PCR) NEGATIVE COVID-19 (OBEY) COVID-19 Clin Com Influenza Type A (PCR) NEGATIVE Influenza Type B (PCR) NEGATIVE RSV RNA Qual (PCR) NEGATIVE 09/24/20 09/24/20 09/24/20 19:50 19:50 19:58 MCV MCH MCHC RDW Plt Count MPV Immature Gran % (Auto) Neut % (Auto) Lymph % (Auto) [place] % (Auto) Eos % (Auto) Baso % (Auto) Lymph # (Auto) [place] # (Auto) Eos # (Auto) Baso # (Auto) Abs Immat Gran (auto) Absolute Neuts (auto) Absolute Nucleated RBC Nucleated RBC % (auto) ESR 5 PT INR O2 Saturation 96.0 ABG pH at Pt Temp 7.33 L ABG pH (Temp Correct) 7.33 L ABG pCO2 at Pt Temp 71 H* ABG pCO2 (Temp Corrct 70 H* ABG pO2 at Pt Temp 92 ABG pO2 (Temp Correct 91 ABG HCO3 37 H ABG Base Excess (Actual) 8.7 Anion Gap Estim Creat Clear Calc Estimated GFR Random Glucose Lactic Acid Calcium Magnesium Total Bilirubin Direct Bilirubin AST ALT Alkaline Phosphatase Troponin I High Sens B-Natriuretic Peptide 350 H Total Protein Albumin Urine Color Urine Appearance Urine pH Ur Specific [place] Urine Protein Urine Glucose (UA) Urine Ketones Urine Blood Urine Nitrite Ur Leukocyte Esterase Urine RBC Urine WBC Ur Squamous Epith Cells Urine Bacteria Granular Casts Coronavirus (PCR) COVID-19 (OBEY) COVID-19 Clin Com Influenza Type A (PCR) Influenza Type B (PCR) RSV RNA Qual (PCR) <Yanira Sotelo PA-C - Last Filed: 09/24/20 23:14> Imaging Radiologist's Impressions: Impressions Chest X-Ray 09/24/20 13:50 IMPRESSION: No acute intracranial process seen. Likely small lacunar infarct right caudate nucleus. Age-related mild cerebral volume loss. Cardiomegaly with CHF. Head CT 09/24/20 13:50 IMPRESSION: No acute intracranial process seen. Likely small lacunar infarct right caudate nucleus. Age-related mild cerebral volume loss. Cardiomegaly with CHF. Chest CT 09/24/20 17:16 IMPRESSION: Cardiomegaly. Bibasilar subsegmental dependent atelectasis. No consolidation. <LYNN Farah Last Filed: 09/24/20 23:14> Assessment and Plan (1) Acute bacterial conjunctivitis: Status: Acute <Yanira Sotelo PA-C - Last Filed: 09/24/20 23:14> (2) Acute dyspnea: Status: Acute <Yanira Sotelo PA-C - Last Filed: 09/24/20 23:14> (3) Elevated brain natriuretic peptide (BNP) level: Status: Acute <Yanira Sotelo PA-C - Last Filed: 09/24/20 23:14> (4) Elevated troponin: Status: Acute <Yanira Sotelo PA-C - Last Filed: 09/24/20 23:14> (5) Obesity hypoventilation syndrome: Status: Acute <LYNN Farah Last Filed: 09/24/20 23:14>
[2020-09-24 23:30] LABS: Anion Gap 17 (12-20); Blood Urea Nitrogen 34 mg/dL (9-16); Calcium 9.4 mg/dL (8.4-10.2); Carbon Dioxide 27 mmol/L (22-29); Chloride 108 mmol/L (96-108); Estimated Glomerular Filt Rate 57; Glucose Random 99 mg/dL (60-115); Potassium 5.5 mmol/L (3.3-5.1); Sodium 146 mmol/L (135-145)
[2020-09-25] VITALS (27 sets, daily range): BP systolic 115–180; BP diastolic 52–92; PULSE 56–107; RESP 11–27; TEMP 36.5–37.3; O2SAT 91–100
--- NOTE | 2020-09-25 | ECG_ITS ---
Test Reason : HIGH HR Blood Pressure : / mmHG Vent. Rate : 070 BPM Atrial Rate : 070 BPM P-R Int : 154 ms QRS Dur : 094 ms QT Int : 380 ms P-R-T Axes : 042 -09 017 degrees QTc Int : 410 ms Normal sinus rhythm Possible Left atrial enlargement Cannot exclude old Anterior infarct , age undetermined Abnormal ECG No previous ECGs available Referred By: Lukas Eldridge Electronically Signed By:SUSAN BROWN
[2020-09-25] MEDS: Albuterol/Iprat 2.5/0.5MG 3 ML AMPUL.NEB INHALE ×6 (00:49→20:05)
[2020-09-25] MEDS: Insulin Regular, Human 100 UNIT/ML 3 ML VIAL IVPUSH (02:31)
[2020-09-25 02:36] LABS: Glucose, Whole Blood 86 mg/dL (60-115)
--- NOTE | 2020-09-25 04:33 | PC.NURSE ---
PT ADMITTED TO ICU AT APPROX 2200. A&OX4. AFEBRILE. NSR/SB ON TELE, HR 50-60s. SBP WNL. LS DIMINISHED. ON BIPAP, TOLERATING WELL. CURRENTLY ON AVAPS SETTINGS- RATE 12, Vt 600, EPAP 8, MIN P 10, MAX P 35, FIO2 50%. RR 20s, SpO2 99%. MARTINEZ IN PLACE, UOP 30 ML/HR. PT EDUCATED AND AWARE OF PLAN OF CARE. OFFERS NO COMPLAINTS. SKIN INTACT- FUNGAL INFECTION TO B/L BREASTS/GROIN/FOLDS. NYSTATIN POWDER ORDERED.
[2020-09-25 05:49] LABS: VBG Base Excess 8.5 mmol/L; VBG HCO3 36 mmol/L (22-26); VBG pCO2 66 mmHg; VBG pH 7.34 (7.32-7.43); VBG pO2 68 mmHg
[2020-09-25 05:49] LABS: Venous Blood Gas Refer to POC result
[2020-09-25 05:53] LABS: Hemoglobin 13.3 g/dl (12.0-16.0); Imm Gran Abs Auto 0.01 X10*3/uL (0.00-0.03); Imm Gran Pct Auto 0.2 % (0.0-0.4); MANUAL DIFF FLAG SCAN; PLT CLUMP 1; Red Cell Distribution Width 14.6 % (11.0-16.0); SCAN SMEAR FLAG 1
[2020-09-25 05:55] LABS: Basophils Percent Auto 0.4 % (0-2); Eosinophils Absolute Auto 0.1 X10*3/uL (0.0-0.4); Eosinophils Percent Auto 1.3 % (0-4); Hematocrit 46.4 % (37-47); Lymphocytes Percent Auto 18.9 % (20-40); Mean Corpuscular HGB Conc 28.7 g/dl (31.0-35.0); Mean Corpuscular Hemoglobin 27.9 pg (27.0-33.0); Mean Corpuscular Volume 97.3 fL (80-98); Mean Platelet Volume 11.5 fL (9.4-12.3); Monocytes Absolute Auto 0.7 X10*3/uL (0.1-1.2); Monocytes Percent Auto 13.7 % (2-11); Neutrophils Absolute Auto 3.6 X10*3/uL (2.0-8.3); Neutrophils Percent Auto 65.5 % (45-73); Red Blood Count 4.77 X10*6/uL (4.20-5.50); White Blood Count 5.4 X10*3/uL (4.8-10.8)
[2020-09-25 05:59] LABS: INTERNATIONAL NORM RATIO 1.1 (0.9-1.1); Prothrombin Time 12.7 SEC (10.8-13.0)
[2020-09-25 06:02] LABS: Partial Thromboplastin Time 30.3 SEC (24.1-38.0)
[2020-09-25 06:15] LABS: Anion Gap 14 (12-20); Blood Urea Nitrogen 35 mg/dL (9-16); Calcium 9.4 mg/dL (8.4-10.2); Carbon Dioxide 32 mmol/L (22-29); Chloride 107 mmol/L (96-108); Creatinine Clr Calc Pharmacy 93.9; Estimated Glomerular Filt Rate 58; Glucose Random 82 mg/dL (60-115); Phosphorus 3.4 mg/dL (2.7-4.5); Platelet Count 83 X10*3/uL (160-400); Potassium 4.8 mmol/L (3.3-5.1); Sodium 148 mmol/L (135-145)
[2020-09-25 06:16] LABS: B Type Natriuretic Peptide 184 pg/mL (<100)
[2020-09-25 06:44] LABS: SLIDE REVIEW VERIFIED
--- NOTE | 2020-09-25 06:47 | CA_ITS ---
Transthoracic Echocardiogram Patient (Last, First, Middle): Margie Braxton R Gender: Female Date of : 1945 Age: 74 Procedure Date: 09/25/2020 Procedure Type: Transthoracic Echocardiogram Location: ICU Height: 165.1 cm Weight: 113.4 kg BSA: 2.17 m2 Heart Rate: bpm BP: 120 / 62 mmHg [place]raw Hand: TANYA Referring MD: Matthew Jc MD Symptoms: hypoxic resp failure Study Quality: Technically Difficult ECG Rhythm: Sinus Conclusions: - The left ventricular systolic function is normal. The visually estimated ejection fraction is between 65-70%. - E/E prime ratio is >15, consistent with elevated filling pressures. Evidence suggests grade I (mild) diastolic dysfunction. - There is mild mitral annular calcification. - Gradients across aortic valve are increased but likely from increased stroke volume. No significant aortic stenosis. - Mild pulmonary hypertension is present. - The inferior vena cava is mildly dilated and collapses greater than 50% with inspiration. Findings Procedure Information Contrast agent, definity, is being given per protocol without apparent complications. Left Ventricle Normal left ventricular cavity size. There is mildly increased left ventricular wall thickness. The left ventricular systolic function is normal. The visually estimated ejection fraction is between 65-70%. There is no evidence of regional wall motion abnormalities. E/E prime ratio is >15, consistent with elevated filling pressures. Evidence suggests grade I (mild) diastolic dysfunction. Right Ventricle Normal right ventricular cavity size and systolic function. Atria Both atria are normal in size. Aortic Valve There is a normal trileaflet aortic valve. There is mild calcification of the aortic valve. The peak aortic velocity is 2.99 m/s with a calculated peak gradient of 36 mmHg. The mean gradient is 17 mmHg. The aortic valve area is 1.88 cm2. There is no aortic valve regurgitation. Gradients across aortic valve are increased but likely from increased stroke volume. No significant aortic stenosis. Mitral Valve There is mild mitral annular calcification. There is trace mitral valve regurgitation. There is no mitral valve stenosis. Pulmonic Valve The pulmonic valve was not well visualized. Tricuspid Valve Normal tricuspid valve structure. There is trace tricuspid valve regurgitation. The right ventricular systolic pressure is 46 mmHg. Mild pulmonary hypertension is present. Great Vessels Top normal ascending aortic size at 3.7 cm. Venous The inferior vena cava is mildly dilated and collapses greater than 50% with inspiration. Pericardium/Pleural There is no evidence of pericardial effusion. Prior Study Comparison No prior study available for comparison. Measurements 2D Linear Measurements IVSd: 1.14 0.6-0.9/0.6-1.0 cm LVIDd: 4.89 3.9-5.3/4.2-5.9 cm LVIDd Index: 2.25 2.4-3.2/2.2-3.1 cm/m2 LVIDs: 2.79 2.0-3.6 cm LVPWd: 1.15 0.7-1.1 cm Ao Root: 3.10 2.1-3.5 cm LA Diam: 3.90 2.7-3.8/3.0-4.0 cm LAIDs Index: 1.80 1.5-2.3 cm/m2 LV Mass: 263.34 67-162/88-224 g LV Mass Index: 121.36 43-95/49-115 g/m2 LVOT Diam: 2.00 3.0+(-)1.3 cm 2D Systolic Function EF 4C: 62.90 >55% EF 2C: 60.20 >55% EF BiP: 60.70 >55% Mitral Valve MV Pk E: 1.00 MV PK A: 1.69 MV Decel Time: 490.00 E/A: 0.60 E'Lateral: 5.33 E'Medial: 5.44 E/E' Med: 18.30 E/E' Lat: 18.70 PHT: 143.00 MVA PHT: 1.54 Decel [place]: 2.04 Aortic Valve AoV Pk José [place]: 2.99 AoV Mn José Antonio: 1.83 AoV VTI: 0.52 AoV Pk Grad: 36.00 Aov Mn Grad: 17.00 CODIE Cont.VTI: 1.88 LVOT LVOT Pk [place]: 1.50 LVOT Mn José Antonio: 0.93 LVOT VTI: 0.31 LVOT Pk Grad: 9.00 LVOT Mn Grad: 4.00 LVOT Diam: 2.00 LVOT Area: 3.14 Diastolic Function MV Pk E: 1.00 MV Pk A: 1.69 E/A: 0.60 E'Medial: 5.44 E/E' Med: 18.30 E' Laterial: 5.33 E/E' Lat: 18.70 Tricuspid Valve TR Pk José Antonio: 3.08 TR Pk Grad: 38.00 RA Press: 8.00 RVSP: 46.00 Great Vessels Aorta Ao Root-2D: 3.10 2.0-3.7 cm Ao Asc: 3.70 2.1-3.4 cm Updated in Other Vendor System with Status of Final Tomas Torres MD electronically signed on 09/25/2020 2:52:33 PM with status of Final
[2020-09-25] MEDS: Heparin Sodium,Porcine 5,000 UNIT/ML VIAL 5000 UNIT SUBCUT ×2 (08:55→18:07)
[2020-09-25] MEDS: Famotidine/PF 20 MG/2 ML VIAL IVPUSH ×2 (08:55→21:54)
[2020-09-25] MEDS: Nystatin Powder 15 GM BOTTLE 1 APPL TOPICAL ×2 (08:56→22:05)
[2020-09-25] MEDS: Erythromycin Base 0.5% Oph Oin 1 GM TUBE 1 CM EYE-RIGHT ×2 (09:05→18:07)
--- NOTE | 2020-09-25 10:38 | P.PNCC_ITS ---
Subjective Subjective Date of Service: 09/25/20 Interval History: 74-year-old moderately obese female underlying hypertension no lung history and no cardiac history came in for conjunctivitis of her right IIA and was noted to be hypoxic blood gas revealed that she was an acute on chronic hypercarbic and hypoxic respiratory failure without evidence of an infectious process and she had a predominant right heart failure issue in other words cor pulmonale and she was tachypneic me in in some respiratory distress with some diaphragmatic expiratory effort and had significant peripheral edema as well mild pre renal azotemia bedside echo showing concentric left ventricular hypertrophy with preserved ejection fraction 55% but borderline left ventricular the excuse me right ventricular dimension no pericardial disease no primary valve disease the so there was evidence of diastolic dysfunction and cor pulmonale but did not have a particularly dilated inferior vena cava so is confusing and in addition but the fluid overload she had hypernatremia at 1:48 a.m. which was also a confusing issue so there may be some intrinsic renal disease possibly nephrosclerosis and I chose to place her on BiPAP overnight will allow her to auto diurese and she did for about a L and felt tremendously b radha with much less respiratory effort no accessory muscle use this morning comfortable enough to go on oxygen alone and in and be able to eat so at this point in 0 clearly she has got obesity hypoventilation and sleep apnea and needs to be qualified for device at home as an outpatient but we can start her now on nocturnal BiPAP on the AVAPS mode looking for a tidal volume of about 600 cc with an expiratory pressure of about 8 cm water and hopefully she will continue to diurese as a result but her current pCO2 is down from 83 to 66 and she probably chronically lives between 55 and 60 so we getting near her at this point I also noted that she was thrombocytopenic at 111,000 on presentation and today down to 83,000 and I question whether not lisinopril might be at fault so I withheld all antihypertensives and I would probably choose to use an ARB rather than lisinopril and see if the thrombocytopenia improves Physical Exam Vital Signs: Vital Signs: Last Vital Signs Temp 98.3 F 09/24/20 12:44 Pulse 69 09/25/20 09:59 Resp 20 09/25/20 09:59 BP 138/60 09/25/20 09:59 Pulse Ox 93 09/25/20 09:59 Body Mass Index 0.4 Const: Other: Awake alert oriented x3 and nonfocal neurologically Diminish neck veins and good bilateral carotid upstrokes no bruits no murmurs Chest with the without accessory muscle or diaphragmatic effort no adventitious sounds Abdomen benign Peripherally still have 2+ edema but no dermatitis no livedo Objective Data Labs CBC & Chem 7: 09/25/20 05:36 09/25/20 05:36 Labs: Laboratory Results - last 24 hr 09/24/20 09/24/20 09/24/20 14:34 14:34 14:34 WBC 8.3 RBC 5.36 Hgb 15.2 Hct 52.3 H MCV 97.6 MCH 28.4 MCHC 29.1 L RDW 14.9 Plt Count 111 L MPV 11.4 Immature Gran % (Auto) 0.4 Neut % (Auto) 73.8 H Lymph % (Auto) 13.7 L [place] % (Auto) 11.3 H Eos % (Auto) 0.4 Baso % (Auto) 0.4 Lymph # (Auto) 1.1 L [place] # (Auto) 0.9 Eos # (Auto) 0.0 Baso # (Auto) 0.0 Abs Immat Gran (auto) 0.03 Absolute Neuts (auto) 6.2 Absolute Nucleated RBC 0.000 Nucleated RBC % (auto) 0.0 Smear Tech's Comments ESR PT 11.7 INR 1.0 APTT O2 Saturation ABG pH at Pt Temp ABG pH (Temp Correct) ABG pCO2 at Pt Temp ABG pCO2 (Temp Corrct ABG pO2 at Pt Temp ABG pO2 (Temp Correct ABG HCO3 ABG Base Excess (Actual) VBG pH VBG pCO2 VBG pO2 VBG HCO3 VBG O2 Saturation VBG Base Excess Sodium Potassium Chloride Carbon Dioxide Anion Gap BUN Creatinine Estim Creat Clear Calc Estimated GFR POC Glucose Random Glucose Lactic Acid Calcium Phosphorus Magnesium Total Bilirubin Direct Bilirubin AST ALT Alkaline Phosphatase Troponin I High Sens 116.4 H B-Natriuretic Peptide Total Protein Albumin Urine Color Urine Appearance Urine pH Ur Specific [place] Urine Protein Urine Glucose (UA) Urine Ketones Urine Blood Urine Nitrite Ur Leukocyte Esterase Urine RBC Urine WBC Ur Squamous Epith Cells Urine Bacteria Granular Casts Coronavirus (PCR) COVID-19 (OBEY) COVID-19 Clin Com Influenza Type A (PCR) Influenza Type B (PCR) RSV RNA Qual (PCR) 03/26/21 03/26/21 03/26/21 14:34 14:34 14:39 WBC RBC Hgb Hct MCV MCH MCHC RDW Plt Count MPV Immature Gran % (Auto) Neut % (Auto) Lymph % (Auto) [place] % (Auto) Eos % (Auto) Baso % (Auto) Lymph # (Auto) [place] # (Auto) Eos # (Auto) Baso # (Auto) Abs Immat Gran (auto) Absolute Neuts (auto) Absolute Nucleated RBC Nucleated RBC % (auto) Smear Tech's Comments ESR PT INR APTT O2 Saturation ABG pH at Pt Temp ABG pH (Temp Correct) ABG pCO2 at Pt Temp ABG pCO2 (Temp Corrct ABG pO2 at Pt Temp ABG pO2 (Temp Correct ABG HCO3 ABG Base Excess (Actual) VBG pH VBG pCO2 VBG pO2 VBG HCO3 VBG O2 Saturation VBG Base Excess Sodium Potassium Chloride Carbon Dioxide Anion Gap BUN Creatinine Estim Creat Clear Calc Estimated GFR POC Glucose Random Glucose Lactic Acid 1.0 Calcium Phosphorus Magnesium Total Bilirubin Direct Bilirubin AST ALT Alkaline Phosphatase Troponin I High Sens B-Natriuretic Peptide 383 H Total Protein Albumin Urine Color Urine Appearance Urine pH Ur Specific [place] Urine Protein Urine Glucose (UA) Urine Ketones Urine Blood Urine Nitrite Ur Leukocyte Esterase Urine RBC Urine WBC Ur Squamous Epith Cells Urine Bacteria Granular Casts Coronavirus (PCR) COVID-19 (OBEY) Negative COVID-19 Clin Com See Note Influenza Type A (PCR) Influenza Type B (PCR) RSV RNA Qual (PCR) 09/24/20 09/24/20 09/24/20 15:55 16:08 16:37 WBC RBC Hgb Hct MCV MCH MCHC RDW Plt Count MPV Immature Gran % (Auto) Neut % (Auto) Lymph % (Auto) [place] % (Auto) Eos % (Auto) Baso % (Auto) Lymph # (Auto) [place] # (Auto) Eos # (Auto) Baso # (Auto) Abs Immat Gran (auto) Absolute Neuts (auto) Absolute Nucleated RBC Nucleated RBC % (auto) Smear Tech's Comments ESR PT INR APTT O2 Saturation 96.0 ABG pH at Pt Temp 7.26 L ABG pH (Temp Correct) 7.26 L ABG pCO2 at Pt Temp 81 H* ABG pCO2 (Temp Corrct 83 H* ABG pO2 at Pt Temp 97 ABG pO2 (Temp Correct 100 ABG HCO3 37 H ABG Base Excess (Actual) 6.9 VBG pH VBG pCO2 VBG pO2 VBG HCO3 VBG O2 Saturation VBG Base Excess Sodium 148 H Potassium 5.1 Chloride 106 Carbon Dioxide 35 H Anion Gap 12 BUN 33 H Creatinine 1.01 Estim Creat Clear Calc 87.5 Estimated GFR 54 POC Glucose Random Glucose 104 Lactic Acid Calcium 10.0 Phosphorus Magnesium 2.1 Total Bilirubin 0.4 Direct Bilirubin 0.2 AST 34 H ALT 22 Alkaline Phosphatase 58 Troponin I High Sens B-Natriuretic Peptide Total Protein 6.8 Albumin 3.9 Urine Color YELLOW Urine Appearance CLEAR Urine pH 5.5 Ur Specific [place] >= 1.030 H Urine Protein 3+ H Urine Glucose (UA) NEG Urine Ketones NEG Urine Blood 2+ H Urine Nitrite NEG Ur Leukocyte Esterase NEG Urine RBC 1-4 Urine WBC 0 Ur Squamous Epith Cells 2+ Urine Bacteria NONE Granular Casts 1-4 Coronavirus (PCR) COVID-19 (OBEY) COVID-19 Clin Com Influenza Type A (PCR) Influenza Type B (PCR) RSV RNA Qual (PCR) 09/24/20 09/24/20 09/24/20 17:26 17:28 19:50 WBC RBC Hgb Hct MCV MCH MCHC RDW Plt Count MPV Immature Gran % (Auto) Neut % (Auto) Lymph % (Auto) [place] % (Auto) Eos % (Auto) Baso % (Auto) Lymph # (Auto) [place] # (Auto) Eos # (Auto) Baso # (Auto) Abs Immat Gran (auto) Absolute Neuts (auto) Absolute Nucleated RBC Nucleated RBC % (auto) Smear Tech's Comments ESR PT INR APTT O2 Saturation ABG pH at Pt Temp ABG pH (Temp Correct) ABG pCO2 at Pt Temp ABG pCO2 (Temp Corrct ABG pO2 at Pt Temp ABG pO2 (Temp Correct ABG HCO3 ABG Base Excess (Actual) VBG pH VBG pCO2 VBG pO2 VBG HCO3 VBG O2 Saturation VBG Base Excess Sodium Potassium Chloride Carbon Dioxide Anion Gap BUN Creatinine Estim Creat Clear Calc Estimated GFR POC Glucose Random Glucose Lactic Acid Calcium Phosphorus Magnesium Total Bilirubin Direct Bilirubin AST ALT Alkaline Phosphatase Troponin I High Sens 120.1 H 98.5 H B-Natriuretic Peptide Total Protein Albumin Urine Color Urine Appearance Urine pH Ur Specific [place] Urine Protein Urine Glucose (UA) Urine Ketones Urine Blood Urine Nitrite Ur Leukocyte Esterase Urine RBC Urine WBC Ur Squamous Epith Cells Urine Bacteria Granular Casts Coronavirus (PCR) NEGATIVE COVID-19 (OBEY) COVID-19 Clin Com Influenza Type A (PCR) NEGATIVE Influenza Type B (PCR) NEGATIVE RSV RNA Qual (PCR) NEGATIVE 09/24/20 09/24/20 09/24/20 19:50 19:50 19:58 WBC RBC Hgb Hct MCV MCH MCHC RDW Plt Count MPV Immature Gran % (Auto) Neut % (Auto) Lymph % (Auto) [place] % (Auto) Eos % (Auto) Baso % (Auto) Lymph # (Auto) [place] # (Auto) Eos # (Auto) Baso # (Auto) Abs Immat Gran (auto) Absolute Neuts (auto) Absolute Nucleated RBC Nucleated RBC % (auto) Smear Tech's Comments ESR 5 PT INR APTT O2 Saturation 96.0 ABG pH at Pt Temp 7.33 L ABG pH (Temp Correct) 7.33 L ABG pCO2 at Pt Temp 71 H* ABG pCO2 (Temp Corrct 70 H* ABG pO2 at Pt Temp 92 ABG pO2 (Temp Correct 91 ABG HCO3 37 H ABG Base Excess (Actual) 8.7 VBG pH VBG pCO2 VBG pO2 VBG HCO3 VBG O2 Saturation VBG Base Excess Sodium Potassium Chloride Carbon Dioxide Anion Gap BUN Creatinine Estim Creat Clear Calc Estimated GFR POC Glucose Random Glucose Lactic Acid Calcium Phosphorus Magnesium Total Bilirubin Direct Bilirubin AST ALT Alkaline Phosphatase Troponin I High Sens B-Natriuretic Peptide 350 H Total Protein Albumin Urine Color Urine Appearance Urine pH Ur Specific [place] Urine Protein Urine Glucose (UA) Urine Ketones Urine Blood Urine Nitrite Ur Leukocyte Esterase Urine RBC Urine WBC Ur Squamous Epith Cells Urine Bacteria Granular Casts Coronavirus (PCR) COVID-19 (OBEY) COVID-19 Clin Com Influenza Type A (PCR) Influenza Type B (PCR) RSV RNA Qual (PCR) 09/24/20 09/25/20 09/25/20 22:35 02:33 05:36 WBC 5.4 RBC 4.77 Hgb 13.3 Hct 46.4 MCV 97.3 MCH 27.9 MCHC 28.7 L RDW 14.6 Plt Count 83 L D MPV 11.5 Immature Gran % (Auto) 0.2 Neut % (Auto) 65.5 Lymph % (Auto) 18.9 L [place] % (Auto) 13.7 H Eos % (Auto) 1.3 Baso % (Auto) 0.4 Lymph # (Auto) 1.0 L [place] # (Auto) 0.7 Eos # (Auto) 0.1 Baso # (Auto) 0.0 Abs Immat Gran (auto) 0.01 Absolute Neuts (auto) 3.6 Absolute Nucleated RBC 0.000 Nucleated RBC % (auto) 0.0 Smear Tech's Comments VERIFIED ESR PT INR APTT O2 Saturation ABG pH at Pt Temp ABG pH (Temp Correct) ABG pCO2 at Pt Temp ABG pCO2 (Temp Corrct ABG pO2 at Pt Temp ABG pO2 (Temp Correct ABG HCO3 ABG Base Excess (Actual) VBG pH VBG pCO2 VBG pO2 VBG HCO3 VBG O2 Saturation VBG Base Excess Sodium 146 H Potassium 5.5 H Chloride 108 Carbon Dioxide 27 Anion Gap 17 BUN 34 H Creatinine 0.96 Estim Creat Clear Calc 92.0 Estimated GFR 57 POC Glucose 86 Random Glucose 99 Lactic Acid Calcium 9.4 Phosphorus Magnesium Total Bilirubin Direct Bilirubin AST ALT Alkaline Phosphatase Troponin I High Sens B-Natriuretic Peptide Total Protein Albumin Urine Color Urine Appearance Urine pH Ur Specific [place] Urine Protein Urine Glucose (UA) Urine Ketones Urine Blood Urine Nitrite Ur Leukocyte Esterase Urine RBC Urine WBC Ur Squamous Epith Cells Urine Bacteria Granular Casts Coronavirus (PCR) COVID-19 (OBEY) COVID-19 Clin Com Influenza Type A (PCR) Influenza Type B (PCR) RSV RNA Qual (PCR) 09/25/20 09/25/20 09/25/20 05:36 05:36 05:36 WBC RBC Hgb Hct MCV MCH MCHC RDW Plt Count MPV Immature Gran % (Auto) Neut % (Auto) Lymph % (Auto) [place] % (Auto) Eos % (Auto) Baso % (Auto) Lymph # (Auto) [place] # (Auto) Eos # (Auto) Baso # (Auto) Abs Immat Gran (auto) Absolute Neuts (auto) Absolute Nucleated RBC Nucleated RBC % (auto) Smear Tech's Comments ESR PT 12.7 INR 1.1 APTT 30.3 O2 Saturation ABG pH at Pt Temp ABG pH (Temp Correct) ABG pCO2 at Pt Temp ABG pCO2 (Temp Corrct ABG pO2 at Pt Temp ABG pO2 (Temp Correct ABG HCO3 ABG Base Excess (Actual) VBG pH VBG pCO2 VBG pO2 VBG HCO3 VBG O2 Saturation VBG Base Excess Sodium 148 H Potassium 4.8 Chloride 107 Carbon Dioxide 32 H Anion Gap 14 BUN 35 H Creatinine 0.94 Estim Creat Clear Calc 93.9 Estimated GFR 58 POC Glucose Random Glucose 82 Lactic Acid Calcium 9.4 Phosphorus 3.4 Magnesium 2.0 Total Bilirubin Direct Bilirubin AST ALT Alkaline Phosphatase Troponin I High Sens B-Natriuretic Peptide 184 H Total Protein Albumin Urine Color Urine Appearance Urine pH Ur Specific [place] Urine Protein Urine Glucose (UA) Urine Ketones Urine Blood Urine Nitrite Ur Leukocyte Esterase Urine RBC Urine WBC Ur Squamous Epith Cells Urine Bacteria Granular Casts Coronavirus (PCR) COVID-19 (OBEY) COVID-19 Clin Com Influenza Type A (PCR) Influenza Type B (PCR) RSV RNA Qual (PCR) 09/25/20 05:43 WBC RBC Hgb Hct MCV MCH MCHC RDW Plt Count MPV Immature Gran % (Auto) Neut % (Auto) Lymph % (Auto) [place] % (Auto) Eos % (Auto) Baso % (Auto) Lymph # (Auto) [place] # (Auto) Eos # (Auto) Baso # (Auto) Abs Immat Gran (auto) Absolute Neuts (auto) Absolute Nucleated RBC Nucleated RBC % (auto) Smear Tech's Comments ESR PT INR APTT O2 Saturation ABG pH at Pt Temp ABG pH (Temp Correct) ABG pCO2 at Pt Temp ABG pCO2 (Temp Corrct ABG pO2 at Pt Temp ABG pO2 (Temp Correct ABG HCO3 ABG Base Excess (Actual) VBG pH 7.34 VBG pCO2 66 VBG pO2 68 VBG HCO3 36 H VBG O2 Saturation 93.0 VBG Base Excess 8.5 Sodium Potassium Chloride Carbon Dioxide Anion Gap BUN Creatinine Estim Creat Clear Calc Estimated GFR POC Glucose Random Glucose Lactic Acid Calcium Phosphorus Magnesium Total Bilirubin Direct Bilirubin AST ALT Alkaline Phosphatase Troponin I High Sens B-Natriuretic Peptide Total Protein Albumin Urine Color Urine Appearance Urine pH Ur Specific [place] Urine Protein Urine Glucose (UA) Urine Ketones Urine Blood Urine Nitrite Ur Leukocyte Esterase Urine RBC Urine WBC Ur Squamous Epith Cells Urine Bacteria Granular Casts Coronavirus (PCR) COVID-19 (OBEY) COVID-19 Clin Com Influenza Type A (PCR) Influenza Type B (PCR) RSV RNA Qual (PCR) Progress Note: A&P Assessment and plan (1) Obesity hypoventilation syndrome: Status: Acute (2) Acute bacterial conjunctivitis: Status: Acute (3) Hypoxia: Status: Acute (4) Acute dyspnea: Status: Acute (5) Elevated brain natriuretic peptide (BNP) level: Status: Acute (6) Elevated troponin: Status: Acute (7) Cor pulmonale: Status: Acute Assessment and Plan: At this point will use the BiPAP p.r.n. for increased respiratory effort and definitely nocturnally and she will need a pulmonary consult to qualify her for an outpatient device and I would switch the lisinopril to an ARB and watch for the improvement in the thrombocytopenia (8) Thrombocytopenia: Status: Acute Time Spent With Patient Time: Total time spent is greater than 50% in coordination of care (as do cumented) at patient's floor/unit and/or counseling patient: Total time spent with greater than 50% in coordination of care (as documented) at patient's floor/unit and/or counseling patient:: 30
[2020-09-25 10:56] LABS: Osmolality Urine 583 mosm/kg (373-1093)
[2020-09-25] MEDS: amLODIPine Besylate 10 MG TABLET PO (21:52)
[2020-09-25] MEDS: lisinopriL 40 MG TABLET PO (21:53)
[2020-09-25] MEDS: carvediloL 12.5 MG TABLET PO (21:53)
[2020-09-26] VITALS (17 sets, daily range): BP systolic 122–186; BP diastolic 65–87; PULSE 57–78; RESP 18–22; TEMP 36.6–37.1; O2SAT 87–95; BMI 40.3
[2020-09-26] MEDS: Heparin Sodium,Porcine 5,000 UNIT/ML VIAL 5000 UNIT SUBCUT ×2 (03:34→09:22)
[2020-09-26] MEDS: Albuterol/Iprat 2.5/0.5MG 3 ML AMPUL.NEB INHALE ×4 (07:29→20:00)
--- NOTE | 2020-09-26 08:46 | MHC.CM.PN ---
CM met with Patient at bedside and addressed IMM, providing Patient will original and placing a copy on the chart. Patient lives with her /HCP in a house and she has no DME no prior services. Patient's goal is to return home and CM has initiated and will follow for dc planning. CATHERINE/Rowena Aranda did not return to her practice after her maternity Leave; Patient has her first appointment with her new MD, from the same practice/Dr. Lana Maurice on 10/06/20.
[2020-09-26] MEDS: carvediloL 12.5 MG TABLET PO ×2 (09:21→20:35)
[2020-09-26] MEDS: amLODIPine Besylate 10 MG TABLET PO (09:22)
[2020-09-26] MEDS: Famotidine/PF 20 MG/2 ML VIAL IVPUSH ×2 (09:22→20:33)
[2020-09-26] MEDS: Erythromycin Base 0.5% Oph Oin 1 GM TUBE 1 CM EYE-RIGHT ×2 (09:22→19:02)
[2020-09-26] MEDS: lisinopriL 40 MG TABLET PO (09:23)
[2020-09-26] MEDS: Nystatin Powder 15 GM BOTTLE 1 APPL TOPICAL ×2 (09:24→22:48)
--- NOTE | 2020-09-26 11:02 | MHC.CM.PN ---
CM met with Patient and Daughter/Guerita([phone]) at bedside.Patient and her will be moving to the [facility], upon dc, to live with Guerita. Patient may be in need of respiratory equipment (?CPAP) and Guerita wanted to be sure RT uses a company that services the [facility] area. CM will follow.
[2020-09-26 13:06] LABS: Hemoglobin 13.5 g/dl (12.0-16.0); Mean Corpuscular Volume 96.5 fL (80-98); Mean Platelet Volume 11.3 fL (9.4-12.3); PLT CLUMP 1; SCAN SMEAR FLAG 1
[2020-09-26 13:07] LABS: Basophils Percent Auto 0.7 % (0-2); Eosinophils Absolute Auto 0.2 X10*3/uL (0.0-0.4); Eosinophils Percent Auto 3.3 % (0-4); Hematocrit 46.4 % (37-47); Imm Gran Abs Auto 0.01 X10*3/uL (0.00-0.03); Imm Gran Pct Auto 0.2 % (0.0-0.4); Lymphocytes Absolute Auto 0.7 X10*3/uL (1.2-4.9); Lymphocytes Percent Auto 16.1 % (20-40); Mean Corpuscular HGB Conc 29.1 g/dl (31.0-35.0); Mean Corpuscular Hemoglobin 28.1 pg (27.0-33.0); Monocytes Absolute Auto 0.5 X10*3/uL (0.1-1.2); Monocytes Percent Auto 10.2 % (2-11); Neutrophils Absolute Auto 3.2 X10*3/uL (2.0-8.3); Neutrophils Percent Auto 69.5 % (45-73); Red Blood Count 4.81 X10*6/uL (4.20-5.50); Red Cell Distribution Width 14.6 % (11.0-16.0); White Blood Count 4.6 X10*3/uL (4.8-10.8)
[2020-09-26 13:10] LABS: Venous Blood Gas Refer to POC result
[2020-09-26 13:11] LABS: VBG Base Excess 10.2 mmol/L; VBG HCO3 38 mmol/L (22-26); VBG pCO2 65 mmHg; VBG pH 7.37 (7.32-7.43); VBG pO2 31 mmHg
[2020-09-26 13:16] LABS: Platelet Count 87 X10*3/uL (160-400)
[2020-09-26 13:33] LABS: B Type Natriuretic Peptide 82 pg/mL (<100)
[2020-09-26 13:39] LABS: Anion Gap 12 (12-20); Blood Urea Nitrogen 31 mg/dL (9-16); Calcium 9.6 mg/dL (8.4-10.2); Carbon Dioxide 33 mmol/L (22-29); Chloride 102 mmol/L (96-108); Creatinine Clr Calc Pharmacy 84.1; Estimated Glomerular Filt Rate 51; Glucose Random 128 mg/dL (60-115); Magnesium 2.1 mg/dL (1.6-2.6); Potassium 4.8 mmol/L (3.3-5.1); Sodium 142 mmol/L (135-145)
[2020-09-26 13:42] LABS: Adenovirus PCR Not Detected (Not Detect.); Bordetella parapertussis PCR Not Detected (Not Detect.); Bordetella pertussis PCR Not Detected (Not Detect.); Chlamydia pneumoniae PCR Not Detected (Not Detect.); Coronavirus 229E PCR Not Detected (Not Detect.); Coronavirus HKU1 PCR Not Detected (Not Detect.); Coronavirus NL63 PCR Not Detected (Not Detect.); Coronavirus OC43 PCR Not Detected (Not Detect.); Human metapneumovirus PCR Not Detected (Not Detect.); Influenza A PCR Not Detected (Not Detect.); Influenza B PCR Not Detected (Not Detect.); Mycoplasma pneumoniae PCR Not Detected (Not Detect.); Parainfluenza 1 PCR Not Detected (Not Detect.); Parainfluenza 2 PCR Not Detected (Not Detect.); Parainfluenza 3 PCR Not Detected (Not Detect.); Parainfluenza 4 PCR Not Detected (Not Detect.); RSV PCR Not Detected (Not Detect.); Rhino/Enterovirus PCR Not Detected (Not Detect.); SARS-CoV-2 PCR Not Detected (Not Detect.)
[2020-09-26] MEDS: Furosemide 40 MG/4 ML VIAL IVPUSH (14:00)
--- NOTE | 2020-09-26 15:58 | P.PNIM_ITS ---
Subjective Subjective Date of Service: 09/26/20 Interval History: stepped down from ICU no cough or cold-like symptoms does note chronic daytime fatigue 1/2 BCx this AM returned positive with Staphylococcus sp. Physical Exam Vital Signs: Vital Signs: Last Vital Signs Temp 98.7 F 09/26/20 15:31 Pulse 66 09/26/20 15:31 Resp 20 09/26/20 15:31 BP 186/87 H 09/26/20 15:31 Pulse Ox 87 L 09/26/20 15:31 Body Mass Index 0.4 Gen: in no acute distress HEENT: R conjunctivae injected, sclera anicteric, moist mucus membranes Neck: supple Lungs: clear to auscultation bilaterally Heart: regular rate and rhythm, no murmurs Abd: soft, non-tender, non-distended, morbidly obese Ext: 1+ pitting lower extremity edema Skin: warm/well-perfused Neuro: alert and oriented x3, no focal findings Psych: appropriate affect Objective Data Current Medications Generic Name Dose Route Start Last Admin Trade Name Dawit PRN Reason Stop Dose Admin Albuterol/Ipratropium 3 ml 09/26/20 08:00 09/26/20 15:05 Albuterol/Iprat 2.5/0.5mg 3 Ml Ampul.Neb INHALE 3 ml RQ4H WHILE AWAKE CANDIE Administration Amlodipine Besylate 10 mg 09/25/20 20:20 09/26/20 09:22 Amlodipine Besylate 10 Mg Tablet PO 10 mg DAILY CANDIE Administration Protocol Carvedilol 12.5 mg 09/25/20 20:20 09/26/20 09:21 Carvedilol 12.5 Mg Tablet PO 12.5 mg BID CANDIE Administration Protocol Erythromycin 1 cm 09/24/20 18:00 09/26/20 09:22 Erythromycin Base 0.5% Oph Oin 1 Gm Tube EYE-RIGHT 1 cm BID@0800,1800 CANDIE Administration Famotidine 20 mg 09/24/20 21:00 09/26/20 09:22 Famotidine/Pf 20 Mg/2 Ml Vial IVPUSH 20 mg BID CANDIE Administration Furosemide 40 mg 09/26/20 12:50 09/26/20 14:00 Furosemide 40 Mg/4 Ml Vial IVPUSH 40 mg DAILY CANDIE Administration Protocol Heparin Sodium (Porcine) 5,000 unit 09/24/20 18:00 09/26/20 09:22 Heparin Sodium,Porcine 5,000 Unit/Ml Vial SUBCUT 5,000 unit Q8H CANDIE Administration Nystatin 1 appl 09/25/20 09:00 09/26/20 09:24 Nystatin Powder 15 Gm Bottle TOPICAL 1 appl BID CANDIE Administration Protocol Pharmacy Consult 1 each 09/24/20 13:49 Consult Rx Perform Med Rec MISCELLANE ONCE PRN Consult order Labs CBC & Chem 7: 09/26/20 12:58 09/26/20 12:58 Labs: Laboratory Results - last 24 hr 09/26/20 09/26/20 09/26/20 12:58 12:58 12:58 WBC 4.6 L RBC 4.81 Hgb 13.5 Hct 46.4 MCV 96.5 MCH 28.1 MCHC 29.1 L RDW 14.6 Plt Count 87 L MPV 11.3 Immature Gran % (Auto) 0.2 Neut % (Auto) 69.5 Lymph % (Auto) 16.1 L [place] % (Auto) 10.2 Eos % (Auto) 3.3 Baso % (Auto) 0.7 Lymph # (Auto) 0.7 L [place] # (Auto) 0.5 Eos # (Auto) 0.2 Baso # (Auto) 0.0 Abs Immat Gran (auto) 0.01 Absolute Neuts (auto) 3.2 Absolute Nucleated RBC 0.000 Nucleated RBC % (auto) 0.0 VBG pH VBG pCO2 VBG pO2 VBG HCO3 VBG O2 Saturation VBG Base Excess Sodium 142 Potassium 4.8 Chloride 102 Carbon Dioxide 33 H Anion Gap 12 BUN 31 H Creatinine 1.05 Estim Creat Clear Calc 84.1 Estimated GFR 51 Random Glucose 128 H D Calcium 9.6 Magnesium 2.1 B-Natriuretic Peptide 82 Respiratory Panel Dia Adenovirus (Rapid PCR) B.pert (TEM-PCR) B.parapertussis DNA PCR C. pneumoniae DNA (PCR) Coronavirus OC43 (PCR) Coronavirus HKU1 (PCR) Coronavirus 229E (PCR) Coronavirus NL63 (PCR) Human Metapneumovir PCR Influenza A (RT-PCR) Influenza B (RT-PCR) M. pneumoniae (PCR) Parainfluenza 1 (PCR) Parainfluenza 2 (PCR) Parainfluenza 3 (PCR) Parainfluenza 4 (PCR) RSV (PCR) Entero/Rhino (PCR) SARS-CoV-2 RNA (RT-PCR) 09/26/20 09/26/20 13:04 13:12 WBC RBC Hgb Hct MCV MCH MCHC RDW Plt Count MPV Immature Gran % (Auto) Neut % (Auto) Lymph % (Auto) [place] % (Auto) Eos % (Auto) Baso % (Auto) Lymph # (Auto) [place] # (Auto) Eos # (Auto) Baso # (Auto) Abs Immat Gran (auto) Absolute Neuts (auto) Absolute Nucleated RBC Nucleated RBC % (auto) VBG pH 7.37 VBG pCO2 65 VBG pO2 31 VBG HCO3 38 H VBG O2 Saturation 48.0 VBG Base Excess 10.2 Sodium Potassium Chloride Carbon Dioxide Anion Gap BUN Creatinine Estim Creat Clear Calc Estimated GFR Random Glucose Calcium Magnesium B-Natriuretic Peptide Respiratory Panel Dia See Note Adenovirus (Rapid PCR) Not Detected B.pert (TEM-PCR) Not Detected B.parapertussis DNA PCR Not Detected C. pneumoniae DNA (PCR) Not Detected Coronavirus OC43 (PCR) Not Detected Coronavirus HKU1 (PCR) Not Detected Coronavirus 229E (PCR) Not Detected Coronavirus NL63 (PCR) Not Detected Human Metapneumovir PCR Not Detected Influenza A (RT-PCR) Not Detected Influenza B (RT-PCR) Not Detected M. pneumoniae (PCR) Not Detected Parainfluenza 1 (PCR) Not Detected Parainfluenza 2 (PCR) Not Detected Parainfluenza 3 (PCR) Not Detected Parainfluenza 4 (PCR) Not Detected RSV (PCR) Not Detected Entero/Rhino (PCR) Not Detected SARS-CoV-2 RNA (RT-PCR) Not Detected Microbiology Microbiology Results: Microbiology 09/24/20 15:19 Blood - Venous Blood Culture - Preliminary 09/24/20 15:32 Blood - Venous Blood Culture - Preliminary Staphylococcus species Assessment and Plan (1) Obesity hypoventilation syndrome: Status: Acute (2) Acute bacterial conjunctivitis: Status: Acute Assessment and Plan: 74yo morbidly obese F with HTN who presented to the ED with conjunctivitis and per had some confusion, found to be markedly hypoxia with SaO2% and in retrospect has had worsening subacute GRAVES likely due to undiagnosed R-sided HF from ANDREA/OHS admitted to the ICU on biPAP for respiratory acidosis stepped down to [facility] 09/25/20 # acute/chronic hypercarbic/hypoxic respiratory failure, likely secondary to undiagnosed ANDREA/OHS - BiPAP at night, Pulm consult, suppl O2 to keep SaO2 88-92%, # R-sided HF/cor pulmonale - will diurese with IV furosemide, check formal TTE tomorrow # possible Staphylococcus bacteremia - could be contaminant but in meanwhile will treat with vancomycin pending speciation # acute conjunctivitis - erythromycin ointment # thrombocytopenia - trend CBC, lisinopril held by ICU, also hold heparin # HTN - continue amlodipine, carvedilol # obesity - weight loss counseling # VTE ppx - SCDs
--- NOTE | 2020-09-26 18:47 | PC.NURSE ---
Patient OOB to recliner and to bathroom with 1 assist with walker. Patient tolerated well. O2 weaned to 1L. BC +, IV abx changed to Vanco, Vanco trough ordered. IV lasix ordered, F/C remains in place for diuresis. Pulm consult pending.
[2020-09-26] MEDS: vancomycin HCL 750 MG in 0.9 % Sodium Chloride 250 ML 265 MG IV (19:02)
[2020-09-27] VITALS (13 sets, daily range): BP systolic 139–176; BP diastolic 72–88; PULSE 55–84; RESP 14–20; TEMP 36.1–37; O2SAT 91–98
[2020-09-27] MEDS: vancomycin HCL 750 MG in 0.9 % Sodium Chloride 250 ML 265 MG IV (05:46)
[2020-09-27 06:29] LABS: VBG Base Excess 7.9 mmol/L; VBG HCO3 35 mmol/L (22-26); VBG pCO2 64 mmHg; VBG pH 7.35 (7.32-7.43); VBG pO2 53 mmHg
[2020-09-27 06:31] LABS: Venous Blood Gas Refer to POC result
[2020-09-27 06:40] LABS: Hemoglobin 12.5 g/dl (12.0-16.0); Imm Gran Abs Auto 0.01 X10*3/uL (0.00-0.03); Imm Gran Pct Auto 0.2 % (0.0-0.4); MANUAL DIFF FLAG SCAN; PLT CLUMP 1; SCAN SMEAR FLAG 1
[2020-09-27 06:42] LABS: Basophils Percent Auto 0.7 % (0-2); Eosinophils Absolute Auto 0.2 X10*3/uL (0.0-0.4); Eosinophils Percent Auto 4.4 % (0-4); Hematocrit 42.1 % (37-47); Mean Corpuscular HGB Conc 29.7 g/dl (31.0-35.0); Mean Corpuscular Volume 94.4 fL (80-98); Mean Platelet Volume 11.5 fL (9.4-12.3); Monocytes Absolute Auto 0.7 X10*3/uL (0.1-1.2); Monocytes Percent Auto 17.2 % (2-11); Neutrophils Absolute Auto 2.3 X10*3/uL (2.0-8.3); Neutrophils Percent Auto 54.5 % (45-73); Red Blood Count 4.46 X10*6/uL (4.20-5.50); Red Cell Distribution Width 14.3 % (11.0-16.0); White Blood Count 4.3 X10*3/uL (4.8-10.8)
[2020-09-27 07:21] LABS: Anion Gap 13 (12-20); B Type Natriuretic Peptide 59 pg/mL (<100); Blood Urea Nitrogen 38 mg/dL (9-16); Calcium 9.4 mg/dL (8.4-10.2); Carbon Dioxide 34 mmol/L (22-29); Chloride 102 mmol/L (96-108); Creatinine Clr Calc Pharmacy 61.8; Estimated Glomerular Filt Rate 53; Glucose Random 94 mg/dL (60-115); Magnesium 1.9 mg/dL (1.6-2.6); Potassium 4.7 mmol/L (3.3-5.1); Sodium 144 mmol/L (135-145)
[2020-09-27 07:34] LABS: Platelet Count 82 X10*3/uL (160-400)
[2020-09-27 07:56] LABS: SLIDE REVIEW VERIFIED
[2020-09-27] MEDS: carvediloL 12.5 MG TABLET PO ×2 (08:13→20:01)
[2020-09-27] MEDS: amLODIPine Besylate 10 MG TABLET PO (08:15)
[2020-09-27] MEDS: Erythromycin Base 0.5% Oph Oin 1 GM TUBE 1 CM EYE-RIGHT ×2 (08:15→18:34)
[2020-09-27] MEDS: Furosemide 40 MG/4 ML VIAL IVPUSH (08:15)
[2020-09-27] MEDS: Famotidine/PF 20 MG/2 ML VIAL IVPUSH ×2 (08:16→20:01)
[2020-09-27] MEDS: Nystatin Powder 15 GM BOTTLE 1 APPL TOPICAL ×2 (10:21→20:02)
[2020-09-27] MEDS: Albuterol/Iprat 2.5/0.5MG 3 ML AMPUL.NEB INHALE ×2 (12:33→17:56)
--- NOTE | 2020-09-27 13:46 | MHC.CM.PN ---
Patient is on BIPAP with O2 at 2 liters to maintain sats >94%. Patient is also on IV Vanco for +BC. Discharge plan is home with dtr who will provide transport. CM will continue to follow patient for discharge needs.
--- NOTE | 2020-09-27 15:32 | PM.CNPUL ---
History of Present Illness History of Present Illness Consult date: 09/27/20 Requesting physician: Mirna Mosley Reason for consult: obstructive sleep apnea (ANDREA/OHHS) Chief complaint: Acute/ Chronic hypercarbic/hypoxic respiratory reza Narrative: 74-year-old lady, nonsmoker, with underlying obesity, hypertension, hyperlipidemia hospitalized on 09/24/2020 with acute hypercapnic respiratory failure likely secondary to decompensation of underlying ANDREA/obesity hyperventilation syndrome. Patient states that she has never been seen by hand twister sleep medicine provide or had a sleep study. She has had 2D echocardiogram that demonstrated normal right ventricular function, mild pulmonary hypertension likely secondary to underlying diastolic dysfunction. Review of Systems Constitutional: Constitutional: Denies daytime sleepiness, Denies excessive sweating, Denies fatigue, Denies fever(s), Denies lethargy, Denies malaise, Denies night sweats, Denies snoring and Denies weight loss Eyes: Eyes: Denies blurry vision and Reports itchy eyes ENT: Denies nasal congestion, Denies post nasal drip, Denies sinus pain, Denies sinus pressure and Denies other ( Thrush) Cardiovascular: Cardiovascular: Denies chest pain, Denies pedal edema, Denies dyspnea, Denies orthopnea and Denies paroxysmal nocturnal dyspnea Respiratory: Respiratory: Denies cough, Denies hemoptysis, Denies excessive phlegm production, Denies dyspnea, Denies snoring and Denies wheezing Gastrointestinal: Gastrointestinal: Denies abdominal pain and Denies heartburn Musculoskeletal: Musculoskeletal: Denies myalgias, Denies arthralgias and Denies joint swelling Integumentary/Breasts: Skin/Breast: Denies rash Neurologic: Denies memory loss and Denies seizure-like activity Psychiatric: Psychiatric: Denies abnormal sleep pattern, Denies anxiety and Denies memory loss Endocrine: Endocrine: Denies excessive sweating, Denies fatigue and Denies heat intolerance Hematologic/Lymphatic: Hematologic/Lymphatic: Denies easy bruising Allergic/Immunologic: Allergic/Immunologic: Reports itchy eyes, Denies seasonal rhinorrhea and Denies wheezing PMFSH Past Medical History Medical History High cholesterol Hypertension Social History Social History (Updated 09/24/20 @ 23:23 by Portia Barrera RN) Household Members: Spouse Housing: House Are you a primary clinical care leader to a significant other at home: No Do you presently have visiting nurse or other home services: No Alcohol intake: never Smoking Status: Never smoker Use of substances other than those prescribed or required for medical reasons: No Currently Displaying Signs/Symptoms of Drug Intoxication Withdrawal: No Have you been hit, kicked, punched, or otherwise hurt by someone within the past year? If so, by whom?: No Do you feel safe in your current relationship?: No Is there a partner from a previous relationship who is making you feel unsafe now?: No Are you made to feel afraid or neglected: No Advance Directives: Yes Advance Directives Information Provided: No Advance Directives on File: Yes Advance Directives Date on File: 09/24/20 Do you have thoughts of harming others: None Do you have a plan to hurt others: No Plan Recently lost weight without trying: No service: No Current occupational status: retired Meds Allergies Allergy/AdvReac Type Severity Reaction Status Date / Time No Known Allergies Allergy Verified 09/24/20 12:46 Active Medications: Current Medications Generic Name Dose Route Start Last Admin Trade Name Freq PRN Reason Stop Dose Admin Albuterol/Ipratropium 3 ml 09/26/20 08:00 09/27/20 12:33 Albuterol/Iprat 2.5/0.5mg 3 Ml Ampul.Neb INHALE 3 ml RQ4H WHILE AWAKE CANDIE Administration Amlodipine Besylate 10 mg 09/25/20 20:20 09/27/20 08:15 Amlodipine Besylate 10 Mg Tablet PO 10 mg DAILY CANDIE Administration Protocol Carvedilol 12.5 mg 09/25/20 20:20 09/27/20 08:13 Carvedilol 12.5 Mg Tablet PO 12.5 mg BID CANDIE Administration Protocol Erythromycin 1 cm 09/24/20 18:00 09/27/20 08:15 Erythromycin Base 0.5% Oph Oin 1 Gm Tube EYE-RIGHT 1 cm BID@0800,1800 CANDIE Administration Famotidine 20 mg 09/24/20 21:00 09/27/20 08:16 Famotidine/Pf 20 Mg/2 Ml Vial IVPUSH 20 mg BID CANDIE Administration Furosemide 40 mg 09/26/20 12:50 09/27/20 08:15 Furosemide 40 Mg/4 Ml Vial IVPUSH 40 mg DAILY [facility] Administration Protocol Vancomycin HCl 750 mg/ Sodium 265 mls @ 265 mls/hr 09/26/20 18:00 09/27/20 09:10 Chloride IV Infused Q12H [facility] Infusion Nystatin 1 appl 09/25/20 09:00 09/27/20 10:21 Nystatin Powder 15 Gm Bottle TOPICAL 1 appl BID CANDIE Administration Protocol Pharmacy Consult 1 each 09/24/20 13:49 Consult Rx Perform Med Rec MISCELLANE ONCE PRN Consult order Pharmacy Consult 1 each 09/26/20 16:02 Consult Rx Vancomycin Dosing MISCELLANE DAILY PRN Consult order Home Medications Medication Instructions Recorded Confirmed Last Taken Type amlodipine 10 mg PO DAILY 09/24/20 09/24/20 09/23/20 History carvedilol 12.5 mg PO BID 09/24/20 09/24/20 09/23/20 History lisinopril 40 mg PO DAILY 09/24/20 09/24/20 09/23/20 History Physical Exam Vital Signs: Vital Signs: Last Vital Signs Temp 98.5 F 09/27/20 12:22 Pulse 58 09/27/20 12:34 Resp 20 09/27/20 12:22 BP 149/82 H 09/27/20 12:22 Pulse Ox 94 09/27/20 12:22 Body Mass Index 40.3 Const: General: no acute distress, alert and awake Nutritional Appearance: obese Neck: Neck: Yes no lymphadenopathy, Yes trachea midline and Yes supple Resp: Effort & Inspection: normal respiratory effort and no respiratory distress Auscultation: clear to auscultation bilaterally Cardio: Rate: regular rate Rhythm: regular rhythm Heart sounds: no gallops, no murmurs and no rubs GI: Palpation (GI): Soft to palpation and Other GI palpation findings present ( Nontender) Auscultation: normal bowel sounds Extrem: General: Yes no pedal edema, No clubbing and No cyanosis Results Laboratory Findings CBC and BMP: 09/27/20 06:20 09/27/20 06:20 ABG, PT/INR, D-dimer: PT/INR, D-dimer PT 12.7 SEC (10.8-13.0) 09/25/20 05:36 INR 1.1 (0.9-1.1) 09/25/20 05:36 Abnormal lab findings: Abnormal Labs 09/24/20 09/24/20 09/24/20 14:34 14:34 14:34 WBC Hct 52.3 H MCHC 29.1 L Plt Count 111 L Neut % (Auto) 73.8 H Lymph % (Auto) 13.7 L Gila % (Auto) 11.3 H Eos % (Auto) Lymph # (Auto) 1.1 L ABG pH at Pt Temp ABG pH (Temp Correct) ABG pCO2 at Pt Temp ABG pCO2 (Temp Corrct ABG HCO3 VBG HCO3 Sodium Potassium Carbon Dioxide BUN Random Glucose AST Troponin I High Sens 116.4 H B-Natriuretic Peptide 383 H Ur Specific [place] Urine Protein Urine Blood 09/24/20 09/24/20 09/24/20 15:55 16:08 16:37 WBC Hct MCHC Plt Count Neut % (Auto) Lymph % (Auto) Gila % (Auto) Eos % (Auto) Lymph # (Auto) ABG pH at Pt Temp 7.26 L ABG pH (Temp Correct) 7.26 L ABG pCO2 at Pt Temp 81 H* ABG pCO2 (Temp Corrct 83 H* ABG HCO3 37 H VBG HCO3 Sodium 148 H Potassium Carbon Dioxide 35 H BUN 33 H Random Glucose AST 34 H Troponin I High Sens B-Natriuretic Peptide Ur Specific [place] >= 1.030 H Urine Protein 3+ H Urine Blood 2+ H 09/24/20 09/24/20 09/24/20 17:28 19:50 19:50 WBC Hct MCHC Plt Count Neut % (Auto) Lymph % (Auto) Gila % (Auto) Eos % (Auto) Lymph # (Auto) ABG pH at Pt Temp ABG pH (Temp Correct) ABG pCO2 at Pt Temp ABG pCO2 (Temp Corrct ABG HCO3 VBG HCO3 Sodium Potassium Carbon Dioxide BUN Random Glucose AST Troponin I High Sens 120.1 H 98.5 H B-Natriuretic Peptide 350 H Ur Specific [place] Urine Protein Urine Blood 09/24/20 09/24/20 09/25/20 19:58 22:35 05:36 WBC Hct MCHC 28.7 L Plt Count 83 L D Neut % (Auto) Lymph % (Auto) 18.9 L Gila % (Auto) 13.7 H Eos % (Auto) Lymph # (Auto) 1.0 L ABG pH at Pt Temp 7.33 L ABG pH (Temp Correct) 7.33 L ABG pCO2 at Pt Temp 71 H* ABG pCO2 (Temp Corrct 70 H* ABG HCO3 37 H VBG HCO3 Sodium 146 H Potassium 5.5 H Carbon Dioxide BUN 34 H Random Glucose AST Troponin I High Sens B-Natriuretic Peptide Ur Specific [place] Urine Protein Urine Blood 09/25/20 09/25/20 09/25/20 05:36 05:36 05:43 WBC Hct MCHC Plt Count Neut % (Auto) Lymph % (Auto) Gila % (Auto) Eos % (Auto) Lymph # (Auto) ABG pH at Pt Temp ABG pH (Temp Correct) ABG pCO2 at Pt Temp ABG pCO2 (Temp Corrct ABG HCO3 VBG HCO3 36 H Sodium 148 H Potassium Carbon Dioxide 32 H BUN 35 H Random Glucose AST Troponin I High Sens B-Natriuretic Peptide 184 H Ur Specific [place] Urine Protein Urine Blood 09/26/20 09/26/20 09/26/20 12:58 12:58 13:04 WBC 4.6 L Hct MCHC 29.1 L Plt Count 87 L Neut % (Auto) Lymph % (Auto) 16.1 L Gila % (Auto) Eos % (Auto) Lymph # (Auto) 0.7 L ABG pH at Pt Temp ABG pH (Temp Correct) ABG pCO2 at Pt Temp ABG pCO2 (Temp Corrct ABG HCO3 VBG HCO3 38 H Sodium Potassium Carbon Dioxide 33 H BUN 31 H Random Glucose 128 H D AST Troponin I High Sens B-Natriuretic Peptide Ur Specific [place] Urine Protein Urine Blood 09/27/20 09/27/20 09/27/20 06:20 06:20 06:22 WBC 4.3 L Hct MCHC 29.7 L Plt Count 82 L Neut % (Auto) Lymph % (Auto) Gila % (Auto) 17.2 H Eos % (Auto) 4.4 H Lymph # (Auto) 1.0 L ABG pH at Pt Temp ABG pH (Temp Correct) ABG pCO2 at Pt Temp ABG pCO2 (Temp Corrct ABG HCO3 VBG HCO3 35 H Sodium Potassium Carbon Dioxide 34 H BUN 38 H Random Glucose AST Troponin I High Sens B-Natriuretic Peptide Ur Specific [place] Urine Protein Urine Blood Microbiology: Microbiology 09/24/20 15:32 Blood - Venous Blood Culture - Preliminary Staphylococcus capitis 09/24/20 15:19 Blood - Venous Blood Culture - Preliminary Coag negative Staphylococcus Assessment and Plan (1) Obesity hypoventilation syndrome: Status: Acute Impression: 74-year-old lady with underlying obesity, obstructive sleep apnea/obesity hyperventilation syndrome, diastolic dysfunction admitted with acute on chronic hypoxic and hypercapnic respiratory failure initially requiring BiPAP support, now titrated off. She she does have mild pulmonary hypertension, likely secondary to underlying left-sided diastolic dysfunction. She has improved significantly with diuresis. She does require nocturnal noninvasive positive pressure ventilation. Recommendation: Would obtain overnight oximetry to qualify patient for CPAP at discharge. Patient would benefit from a formal sleep study and possible titration study on the ambulatory side. Would consider further diuresis. (2) Obstructive sleep apnea: Status: Acute (3) Diastolic dysfunction: Status: Acute (4) Pulmonary hypertension: Status: Acute
--- NOTE | 2020-09-27 17:39 | HO.PM.IMPN ---
Subjective Subjective Date of Service: 09/27/20 Interval History: Seen in f/u for acute hypOxic respiratory failure d/t chf, andrea. Seems better Review of Systems Gen: no fever Resp: no sob, no cough CV: no chest, no GRAVES, no leg edema GI: No n/v, no abd pain Neuro: No confusion Physical Exam Vital Signs: Vital Signs: Last Vital Signs Temp 98.6 F 09/27/20 15:53 Pulse 58 09/27/20 12:34 Resp 18 09/27/20 15:53 BP 142/74 H 09/27/20 15:53 Pulse Ox 93 09/27/20 15:53 Body Mass Index 40.3 Gen: in no acute distress HEENT: R conjunctivae injected, sclera anicteric, moist mucus membranes Neck: supple Lungs: clear to auscultation bilaterally Heart: regular rate and rhythm, no murmurs Abd: soft, non-tender, non-distended, morbidly obese Ext: 1+ pitting lower extremity edema Skin: warm/well-perfused Neuro: alert and oriented x3, no focal findings Psych: appropriate affect Objective Data Current Medications Generic Name Dose Route Start Last Admin Trade Name Freq PRN Reason Stop Dose Admin Albuterol/Ipratropium 3 ml 09/26/20 08:00 09/27/20 12:33 Albuterol/Iprat 2.5/0.5mg 3 Ml Ampul.Neb INHALE 3 ml RQ4H WHILE AWAKE CANDIE Administration Amlodipine Besylate 10 mg 09/25/20 20:20 09/27/20 08:15 Amlodipine Besylate 10 Mg Tablet PO 10 mg DAILY C[facility]IE Administration Protocol Carvedilol 12.5 mg 09/25/20 20:20 09/27/20 08:13 Carvedilol 12.5 Mg Tablet PO 12.5 mg BID CANDIE Administration Protocol Erythromycin 1 cm 09/24/20 18:00 09/27/20 08:15 Erythromycin Base 0.5% Oph Oin 1 Gm Tube EYE-RIGHT 1 cm BID@0800,1800 CANDIE Administration Famotidine 20 mg 09/24/20 21:00 09/27/20 08:16 Famotidine/Pf 20 Mg/2 Ml Vial IVPUSH 20 mg BID CANDIE Administration Furosemide 40 mg 09/26/20 12:50 09/27/20 08:15 Furosemide 40 Mg/4 Ml Vial IVPUSH 40 mg DAILY CANDIE Administration Protocol Vancomycin HCl 750 mg/ Sodium 265 mls @ 265 mls/hr 09/26/20 18:00 09/27/20 09:10 Chloride IV Infused Q12H [facility]IE Infusion Nystatin 1 appl 09/25/20 09:00 09/27/20 10:21 Nystatin Powder 15 Gm Bottle TOPICAL 1 appl BID CANDIE Administration Protocol Pharmacy Consult 1 each 09/24/20 13:49 Consult Rx Perform Med Rec MISCELLANE ONCE PRN Consult order Pharmacy Consult 1 each 09/26/20 16:02 Consult Rx Vancomycin Dosing MISCELLANE DAILY PRN Consult order Labs CBC & Chem 7: 09/27/20 06:20 09/27/20 06:20 Microbiology Microbiology Results: Microbiology 09/24/20 15:32 Blood - Venous Blood Culture - Preliminary Staphylococcus capitis 09/24/20 15:19 Blood - Venous Blood Culture - Preliminary Coag negative Staphylococcus Assessment and Plan (1) Obesity hypoventilation syndrome: Status: Acute (2) Acute bacterial conjunctivitis: Status: Acute Assessment and Plan: 74yo morbidly obese F with HTN who presented to the ED with conjunctivitis and per had some confusion, found to be markedly hypoxia with SaO2% and in retrospect has had worsening subacute GRAVES likely due to undiagnosed R-sided HF from ANDREA/OHS admitted to the ICU on biPAP for respiratory acidosis stepped down to [facility] 09/25/20 # acute/chronic hypercarbic/hypoxic respiratory failure, likely secondary to undiagnosed ANDREA/OHS - BiPAP at night, Pulm consult, suppl O2 to keep SaO2 88-92%. Pulmonary recommends obtain overnight oximetry to qualify patient for CPAP at discharge. Patient would benefit from a formal sleep study and possible titration study on the ambulatory side. Would consider further diuresis. # R-sided HF/cor pulmonale - will diurese with IV furosemide, check formal TTE tomorrow # possible Staphylococcus bacteremia - could be contaminant but in meanwhile will treat with vancomycin pending speciation # acute conjunctivitis - erythromycin ointment # thrombocytopenia - trend CBC, lisinopril held by ICU, also hold heparin # HTN - continue amlodipine, carvedilol # obesity - weight loss counseling # VTE ppx - SCDs
[2020-09-27] MEDS: vancomycin HCL 1,250 MG in 0.9 % Sodium Chloride 250 ML 166.67 MG IV (20:02)
[2020-09-28] VITALS (14 sets, daily range): BP systolic 137–148; BP diastolic 70–79; PULSE 56–78; RESP 14–25; TEMP 36.3–36.9; O2SAT 87–98
--- NOTE | 2020-09-28 06:21 | PC.NURSE ---
Valdivia removed at 0600. Due to void by 1200.
[2020-09-28] MEDS: Furosemide 40 MG/4 ML VIAL IVPUSH (08:04)
[2020-09-28] MEDS: Famotidine/PF 20 MG/2 ML VIAL IVPUSH ×2 (08:04→20:26)
[2020-09-28] MEDS: carvediloL 12.5 MG TABLET PO ×2 (08:05→20:27)
[2020-09-28] MEDS: amLODIPine Besylate 10 MG TABLET PO (08:06)
[2020-09-28] MEDS: Erythromycin Base 0.5% Oph Oin 1 GM TUBE 1 CM EYE-RIGHT ×2 (08:07→18:32)
[2020-09-28] MEDS: Albuterol/Iprat 2.5/0.5MG 3 ML AMPUL.NEB INHALE ×4 (08:07→20:29)
[2020-09-28] MEDS: Nystatin Powder 15 GM BOTTLE 1 APPL TOPICAL ×2 (09:52→20:27)
--- NOTE | 2020-09-28 18:50 | HO.PM.IMPN ---
Subjective Subjective Date of Service: 09/29/20 Interval History: acute hypOxic respiratory failure d/t chf, andrea. Seems better Review of Systems still seems sob Denies any chest pain or palpitations Denies any nausea or vomiting No fever or chills No cough Has somewhat short of breath. Physical Exam Vital Signs: Vital Signs: Last Vital Signs Temp 98 F 09/28/20 15:30 Pulse 59 09/28/20 16:19 Resp 18 09/28/20 15:30 BP 144/79 H 09/28/20 15:30 Pulse Ox 94 09/28/20 15:30 Body Mass Index 40.3 Physical exam: Constitutional: Not in acute distress. eye:R conjunctivae injected, sclera anicteric, moist mucus membranes. Cvs: rrr, [id number] , no murmur res: fair air entry ,no rhonchii or wheezing abd: no rebound or guarding ,nt, bs present. ext pulses present , no cyanosis neuro: axo3 , nonfocal. Objective Data Current Medications Generic Name Dose Route Start Last Admin Trade Name Dawit PRN Reason Stop Dose Admin Albuterol/Ipratropium 3 ml 09/26/20 08:00 09/28/20 16:18 Albuterol/Iprat 2.5/0.5mg 3 Ml Ampul.Neb INHALE 3 ml RQ4H WHILE AWAKE CANDIE Administration Amlodipine Besylate 10 mg 09/25/20 20:20 09/28/20 08:06 Amlodipine Besylate 10 Mg Tablet PO 10 mg DAILY CANDIE Administration Protocol Carvedilol 12.5 mg 09/25/20 20:20 09/28/20 08:05 Carvedilol 12.5 Mg Tablet PO 12.5 mg BID CANDIE Administration Protocol Erythromycin 1 cm 09/24/20 18:00 09/28/20 18:32 Erythromycin Base 0.5% Oph Oin 1 Gm Tube EYE-RIGHT 1 cm BID@0800,1800 CANDIE Administration Famotidine 20 mg 09/24/20 21:00 09/28/20 08:04 Famotidine/Pf 20 Mg/2 Ml Vial IVPUSH 20 mg BID CANDIE Administration Furosemide 40 mg 09/26/20 12:50 09/28/20 08:04 Furosemide 40 Mg/4 Ml Vial IVPUSH 40 mg DAILY CANDIE Administration Protocol Vancomycin HCl 1,250 mg/ 250 mls @ 166.667 mls/hr 09/27/20 20:00 09/27/20 22:30 Sodium Chloride IV Infused Q24H CANDIE Infusion Nystatin 1 appl 09/25/20 09:00 09/28/20 09:52 Nystatin Powder 15 Gm Bottle TOPICAL 1 appl BID CANDIE Administration Protocol Pharmacy Consult 1 each 09/24/20 13:49 Consult Rx Perform Med Rec MISCELLANE ONCE PRN Consult order Pharmacy Consult 1 each 09/26/20 16:02 Consult Rx Vancomycin Dosing MISCELLANE DAILY PRN Consult order Labs CBC & Chem 7: 09/27/20 06:20 09/29/20 05:25 Microbiology Microbiology Results: Microbiology 09/24/20 15:19 Blood - Venous Blood Culture - Final Staphylococcus capitis 09/24/20 15:32 Blood - Venous Blood Culture - Preliminary Staphylococcus capitis Assessment and Plan (1) Obesity hypoventilation syndrome: Status: Acute Assessment and Plan: 74yo morbidly obese F with HTN who presented to the ED with conjunctivitis and per had some confusion, found to be markedly hypoxia with SaO2% and in retrospect has had worsening subacute GRAVES likely due to undiagnosed R-sided HF from ANDREA/OHS admitted to the ICU on biPAP for respiratory acidosis stepped [place] [facility] [place] 1.acute/chronic hypercarbic/hypoxic respiratory failure, likely secondary to undiagnosed ANDREA/OHS - BiPAP at night, Pulm consult, suppl O2 to keep SaO2 88-92%. Pulmonary recommends obtain overnight oximetry to qualify patient for CPAP at discharge. Patient would benefit from a formal sleep study and possible titration study on the ambulatory side. Would consider further diuresis. 2. R-sided HF/cor pulmonale continue with IV furosemide, echo pending 3. possible Staphylococcus bacteremia-? staph capitis - could be contaminant but in meanwhile will treat with vancomycin pending speciation 4. acute conjunctivitis- erythromycin ointment 5. thrombocytopenia- trend CBC, lisinopril held by ICU, also hold heparin 6. HTN- continue amlodipine, carvedilol 7. obesity- weight loss counseling # VTE ppx - SCDs
[2020-09-28 20:01] LABS: Vancomycin Trough 11.4 mcg/mL (10.0-20.0)
[2020-09-29] VITALS (11 sets, daily range): BP systolic 124–142; BP diastolic 68–82; PULSE 61–87; RESP 12–18; TEMP 36.3–36.9; O2SAT 3–100; BMI 43.7
[2020-09-29 07:17] LABS: Anion Gap 14 (12-20); Blood Urea Nitrogen 40 mg/dL (9-16); Calcium 9.3 mg/dL (8.4-10.2); Carbon Dioxide 37 mmol/L (22-29); Chloride 97 mmol/L (96-108); Estimated Glomerular Filt Rate 54; Glucose Random 92 mg/dL (60-115); Potassium 4.5 mmol/L (3.3-5.1); Sodium 143 mmol/L (135-145)
[2020-09-29] MEDS: Albuterol/Iprat 2.5/0.5MG 3 ML AMPUL.NEB INHALE ×4 (07:59→19:32)
[2020-09-29] MEDS: Famotidine/PF 20 MG/2 ML VIAL IVPUSH ×2 (08:39→19:55)
[2020-09-29] MEDS: carvediloL 12.5 MG TABLET PO ×2 (08:39→19:55)
[2020-09-29] MEDS: Furosemide 40 MG/4 ML VIAL IVPUSH (08:39)
[2020-09-29] MEDS: amLODIPine Besylate 10 MG TABLET PO (08:40)
[2020-09-29] MEDS: Erythromycin Base 0.5% Oph Oin 1 GM TUBE 1 CM EYE-RIGHT ×2 (08:41→18:17)
[2020-09-29] MEDS: Nystatin Powder 15 GM BOTTLE 1 APPL TOPICAL ×2 (11:01→19:59)
--- NOTE | 2020-09-29 11:48 | MHC.CM.PN ---
CM met with patient and dtr after rounds to report patient will have overnight oximetry test tonight to qualify her for her Bipap. also ordered ID consult for input of what ABT patient should d/c on for her bacteremia. Patient's discharge plan is to home at her [facility] residence. Dtr will provide transportation. CM will continue to follow patient for discharge needs.
--- NOTE | 2020-09-29 15:25 | HO.PM.IMPN ---
Subjective Subjective Date of Service: 10/06/20 Interval History: acute hypOxic respiratory failure d/t chf, andrea. Review of Systems sob improving Denies any chest pain or palpitations Denies any nausea or vomiting No fever or chills Physical Exam Vital Signs: Vital Signs: Last Vital Signs Temp 98.0 F 09/29/20 11:06 Pulse 84 09/29/20 15:01 Resp 18 09/29/20 11:06 BP 138/79 09/29/20 11:06 Pulse Ox 98 09/29/20 11:06 Body Mass Index 43.7 Constitutional: Not in acute distress. eye:R conjunctivae injected-seems improving, sclera anicteric, moist mucus membranes. Cvs: rrr, [id number] , no murmur res: fair air entry ,no rhonchii or wheezing abd: no rebound or guarding ,nt, bs present. ext pulses present , no cyanosis neuro: axo3 , nonfocal. Objective Data Current Medications Generic Name Dose Route Start Last Admin Trade Name Freq PRN Reason Stop Dose Admin Albuterol/Ipratropium 3 ml 09/26/20 08:00 09/29/20 15:01 Albuterol/Iprat 2.5/0.5mg 3 Ml Ampul.Neb INHALE 3 ml RQ4H WHILE AWAKE CANDIE Administration Amlodipine Besylate 10 mg 09/25/20 20:20 09/29/20 08:40 Amlodipine Besylate 10 Mg Tablet PO 10 mg DAILY CANDIE Administration Protocol Carvedilol 12.5 mg 09/25/20 20:20 09/29/20 08:39 Carvedilol 12.5 Mg Tablet PO 12.5 mg BID CANDIE Administration Protocol Erythromycin 1 cm 09/24/20 18:00 09/29/20 08:41 Erythromycin Base 0.5% Oph Oin 1 Gm Tube EYE-RIGHT 1 cm BID@0800,1800 CANDIE Administration Famotidine 20 mg 09/24/20 21:00 09/29/20 08:39 Famotidine/Pf 20 Mg/2 Ml Vial IVPUSH 20 mg BID CANDIE Administration Furosemide 40 mg 09/26/20 12:50 09/29/20 08:39 Furosemide 40 Mg/4 Ml Vial IVPUSH 40 mg DAILY CANDIE Administration Protocol Nystatin 1 appl 09/25/20 09:00 09/29/20 11:01 Nystatin Powder 15 Gm Bottle TOPICAL 1 appl BID CADNIE Administration Protocol Pharmacy Consult 1 each 09/24/20 13:49 Consult Rx Perform Med Rec MISCELLANE ONCE PRN Consult order Pharmacy Consult 1 each 09/26/20 16:02 Consult Rx Vancomycin Dosing MISCELLANE DAILY PRN Consult order Labs CBC & Chem 7: 10/02/20 05:38 10/02/20 05:38 Microbiology Microbiology Results: Microbiology 09/24/20 15:19 Blood - Venous Blood Culture - Final Staphylococcus capitis 09/24/20 15:32 Blood - Venous Blood Culture - Preliminary Staphylococcus capitis Assessment and Plan (1) Cor pulmonale: Status: Acute (2) Diastolic dysfunction: Status: Acute Assessment and Plan: 74yo morbidly obese F with HTN who presented to the ED with conjunctivitis and per had some confusion, found to be markedly hypoxia with SaO2% and in retrospect has had worsening subacute GRAVES likely due to undiagnosed R-sided HF from ANDREA/OHS admitted to the ICU on biPAP for respiratory acidosis stepped down to [facility] [place] 09/25/20 1.acute/chronic hypercarbic/hypoxic respiratory failure, likely secondary to undiagnosed ANDREA/OHS - BiPAP at night, Pulm consult, suppl O2 to keep SaO2 88-92%. Pulmonary recommends obtain overnight oximetry to qualify patient for CPAP at discharge. Patient would benefit from a formal sleep study and possible titration study on the ambulatory side. Would consider further diuresis. 2. R-sided HF/cor pulmonale continue with IV furosemide, echo pending 3. possible Staphylococcus bacteremia-? staph capitis - could be contaminant but in meanwhile -hold vancomycin-d/w Id seems contaminant 4. acute conjunctivitis- erythromycin ointment 5. thrombocytopenia- trend CBC, lisinopril held by ICU, also hold heparin 6. HTN- continue amlodipine, carvedilol 7. obesity- weight loss counseling # VTE ppx
--- NOTE | 2020-09-29 16:03 | W.PM.IDCN ---
History of Present Illness Data of Consult Service Date: 09/29/20 Requesting physician: Flory Lafleur Primary Care Provider: Rowena Aranda NP HPI Reason for consult: bacteremia She presents to ER on 09/24 with blurry vision and weakness,right eye blurry vision She was admitted and evaluated for CVA Blood culture staph capitus PMFSH Past Medical History Medical History (Updated 09/29/20 @ 16:06 by Sheila Bunn MD) Bacteremia High cholesterol Hypertension Social History Social History (Updated 09/24/20 @ 23:23 by Portia Barrera RN) Household Members: Spouse Housing: House Are you a primary healthcare financial analyst to a significant other at home: No Do you presently have visiting nurse or other home services: No Alcohol intake: never Smoking Status: Never smoker Use of substances other than those prescribed or required for medical reasons: No Currently Displaying Signs/Symptoms of Drug Intoxication Withdrawal: No Have you been hit, kicked, punched, or otherwise hurt by someone within the past year? If so, by whom?: No Do you feel safe in your current relationship?: No Is there a partner from a previous relationship who is making you feel unsafe now?: No Are you made to feel afraid or neglected: No Advance Directives: Yes Advance Directives Information Provided: No Advance Directives on File: Yes Advance Directives Date on File: 09/24/20 Do you have thoughts of harming others: None Do you have a plan to hurt others: No Plan Recently lost weight without trying: No service: No Current occupational status: retired Meds Allergies Allergy/AdvReac Type Severity Reaction Status Date / Time No Known Allergies Allergy Verified 09/24/20 12:46 Active Medications: Current Medications Generic Name Dose Route Start Last Admin Trade Name Freq PRN Reason Stop Dose Admin Albuterol/Ipratropium 3 ml 09/26/20 08:00 09/29/20 15:01 Albuterol/Iprat 2.5/0.5mg 3 Ml Ampul.Neb INHALE 3 ml RQ4H WHILE AWAKE CANDIE Administration Amlodipine Besylate 10 mg 09/25/20 20:20 09/29/20 08:40 Amlodipine Besylate 10 Mg Tablet PO 10 mg DAILY CANDIE Administration Protocol Carvedilol 12.5 mg 09/25/20 20:20 09/29/20 08:39 Carvedilol 12.5 Mg Tablet PO 12.5 mg BID CANDIE Administration Protocol Erythromycin 1 cm 09/24/20 18:00 09/29/20 08:41 Erythromycin Base 0.5% Oph Oin 1 Gm Tube EYE-RIGHT 1 cm BID@0800,1800 CANDIE Administration Famotidine 20 mg 09/24/20 21:00 09/29/20 08:39 Famotidine/Pf 20 Mg/2 Ml Vial IVPUSH 20 mg BID CANDIE Administration Furosemide 40 mg 09/26/20 12:50 09/29/20 08:39 Furosemide 40 Mg/4 Ml Vial IVPUSH 40 mg DAILY CANDIE Administration Protocol Nystatin 1 appl 09/25/20 09:00 09/29/20 11:01 Nystatin Powder 15 Gm Bottle TOPICAL 1 appl BID CANDIE Administration Protocol Pharmacy Consult 1 each 09/24/20 13:49 Consult Rx Perform Med Rec MISCELLANE ONCE PRN Consult order Pharmacy Consult 1 each 09/26/20 16:02 Consult Rx Vancomycin Dosing MISCELLANE DAILY PRN Consult order Home Medications Medication Instructions Recorded Confirmed Last Taken Type amlodipine 10 mg PO DAILY 09/24/20 09/24/20 09/23/20 History carvedilol 12.5 mg PO BID 09/24/20 09/24/20 09/23/20 History lisinopril 40 mg PO DAILY 09/24/20 09/24/20 09/23/20 History Physical Exam Vital Signs: Vital Signs: Last Vital Signs Temp 98.3 F 09/29/20 15:34 Pulse 63 09/29/20 15:34 Resp 18 09/29/20 15:34 BP 142/82 H 09/29/20 15:34 Pulse Ox 94 09/29/20 15:34 Body Mass Index 43.7 Const: General: cooperative HENMT: Head: Yes normal to inspection Mouth: Normal oral and palatal mucosa present Throat: Yes posterior oropharynx normal Resp: Effort & Inspection: normal respiratory effort Cardio: Rate: regular rate GI: Palpation (GI): Soft to palpation and nontender : General: Yes no CVA tenderness Back/Spine/Pelvis: Back: no CVA tenderness Results Labs CBC & Chem 7: 09/27/20 06:20 09/29/20 05:25 Labs: BMP 09/29/20 05:25 Sodium 143 Potassium 4.5 Chloride 97 Carbon Dioxide 37 H BUN 40 H Creatinine 1.00 Calcium 9.3 Microbiology Microbiology Results: Microbiology 09/24/20 15:19 Blood - Venous Blood Culture - Final Staphylococcus capitis 09/24/20 15:32 Blood - Venous Blood Culture - Preliminary Staphylococcus capitis Assessment and Plan (1) Bacteremia: Problem details: She has staph capitus bacteremia She has no chronic lines and this looks like contaminant Status: Acute Would stop Vancomycin Observe
[2020-09-30] VITALS (15 sets, daily range): BP systolic 114–137; BP diastolic 61–82; PULSE 58–96; RESP 14–20; TEMP 36.3–37.1; O2SAT 91–100; BMI 43.9
--- NOTE | 2020-09-30 05:11 | PC.RT ---
Pt Sats continued to drop to low 70s on overnight oximetry with 2LNC , pt lasted 1 hour and had to be placed on AVAPS for bed
[2020-09-30 06:24] LABS: PLT CLUMP 1
[2020-09-30 06:26] LABS: Hematocrit 42.8 % (37-47); Hemoglobin 12.9 g/dl (12.0-16.0); Mean Corpuscular HGB Conc 30.1 g/dl (31.0-35.0); Mean Corpuscular Hemoglobin 28.4 pg (27.0-33.0); Mean Corpuscular Volume 94.3 fL (80-98); Mean Platelet Volume 12.4 fL (9.4-12.3); Red Blood Count 4.54 X10*6/uL (4.20-5.50); Red Cell Distribution Width 14.3 % (11.0-16.0); White Blood Count 4.4 X10*3/uL (4.8-10.8)
[2020-09-30 06:35] LABS: Platelet Count 87 X10*3/uL (160-400)
[2020-09-30 07:08] LABS: Anion Gap 12 (12-20); Blood Urea Nitrogen 48 mg/dL (9-16); Calcium 9.4 mg/dL (8.4-10.2); Carbon Dioxide 37 mmol/L (22-29); Chloride 100 mmol/L (96-108); Creatinine Clr Calc Pharmacy 59.5; Estimated Glomerular Filt Rate 48; Glucose Random 94 mg/dL (60-115); Potassium 4.6 mmol/L (3.3-5.1); Sodium 144 mmol/L (135-145)
[2020-09-30] MEDS: Albuterol/Iprat 2.5/0.5MG 3 ML AMPUL.NEB INHALE ×3 (07:28→20:12)
[2020-09-30] MEDS: carvediloL 12.5 MG TABLET PO ×2 (08:36→21:22)
[2020-09-30] MEDS: Famotidine/PF 20 MG/2 ML VIAL IVPUSH ×2 (08:36→21:23)
[2020-09-30] MEDS: amLODIPine Besylate 10 MG TABLET PO (08:37)
[2020-09-30] MEDS: Erythromycin Base 0.5% Oph Oin 1 GM TUBE 1 CM EYE-RIGHT ×2 (08:37→19:18)
[2020-09-30] MEDS: Nystatin Powder 15 GM BOTTLE 1 APPL TOPICAL ×2 (08:38→23:20)
[2020-09-30 11:27] LABS: ABG Base Excess 12.4 mmol/L; ABG HCO3 38 mmol/L (22-26); ABG pCO2 55 mmHg (32-45); ABG pCO2 TC 55 mmHg (32-45); ABG pH 7.45 (7.35-7.45); ABG pH TC 7.45 (7.35-7.45); ABG pO2 151 mmHg (83-108); ABG pO2 TC 152 (83-108)
[2020-09-30 13:34] LABS: ABG Refer to POC result
--- NOTE | 2020-09-30 15:27 | P.PNIM_ITS ---
Subjective Subjective Date of Service: 09/30/20 Interval History: Feeling okay Cardiovascular Cardiovascular: Reports no additional cardiovascular complaints Gastrointestinal Gastrointestinal: Reports no additional gastrointestinal complaints Physical Exam Vital Signs: Vital Signs: Last Vital Signs Temp 97.4 F 09/30/20 15:20 Pulse 66 09/30/20 15:20 Resp 20 09/30/20 15:20 BP 129/76 09/30/20 15:20 Pulse Ox 97 09/30/20 15:20 Body Mass Index 43.9 Const General: cooperative HENMT Head: Yes normal to inspection Mouth: Normal oral and palatal mucosa present Throat: Yes posterior oropharynx normal Resp Effort & Inspection: normal respiratory effort Cardio Rate: regular rate GI Palpation (GI): Soft to palpation and nontender General: Yes no CVA tenderness Back/Spine/Pelvis Back: no CVA tenderness Objective Data Current Medications Generic Name Dose Route Start Last Admin Trade Name Freq PRN Reason Stop Dose Admin Albuterol/Ipratropium 3 ml 09/26/20 08:00 09/30/20 15:13 Albuterol/Iprat 2.5/0.5mg 3 Ml Ampul.Neb INHALE 3 ml RQ4H WHILE AWAKE CANDIE Administration Amlodipine Besylate 10 mg 09/25/20 20:20 09/30/20 08:37 Amlodipine Besylate 10 Mg Tablet PO 10 mg DAILY CANDIE Administration Protocol Carvedilol 12.5 mg 09/25/20 20:20 09/30/20 08:36 Carvedilol 12.5 Mg Tablet PO 12.5 mg BID CANDIE Administration Protocol Erythromycin 1 cm 09/24/20 18:00 09/30/20 08:37 Erythromycin Base 0.5% Oph Oin 1 Gm Tube EYE-RIGHT 1 cm BID@0800,1800 CANDIE Administration Famotidine 20 mg 09/24/20 21:00 09/30/20 08:36 Famotidine/Pf 20 Mg/2 Ml Vial IVPUSH 20 mg BID CANDIE Administration Furosemide 40 mg 09/26/20 12:50 09/29/20 08:39 Furosemide 40 Mg/4 Ml Vial IVPUSH 40 mg DAILY CANDIE Administration Protocol Nystatin 1 appl 09/25/20 09:00 09/30/20 08:38 Nystatin Powder 15 Gm Bottle TOPICAL 1 appl BID CANDIE Administration Protocol Pharmacy Consult 1 each 09/24/20 13:49 Consult Rx Perform Med Rec MISCELLANE ONCE PRN Consult order Pharmacy Consult 1 each 09/26/20 16:02 Consult Rx Vancomycin Dosing MISCELLANE DAILY PRN Consult order Labs CBC & Chem 7: 09/30/20 05:16 09/30/20 05:16 Microbiology Microbiology Results: Microbiology 09/24/20 15:32 Blood - Venous Blood Culture - Final Staphylococcus capitis 09/24/20 15:19 Blood - Venous Blood Culture - Final Staphylococcus capitis Assessment and Plan (1) Cor pulmonale: Status: Acute (2) Diastolic dysfunction: Status: Acute Assessment and Plan: 74yo morbidly obese F with HTN who presented to the ED with conjunctivitis and per had some confusion, found to be markedly hypoxia with SaO2% and in retrospect has had worsening subacute GRAVES likely due to undiagnosed R-sided HF from ANDREA/OHS admitted to the ICU on biPAP for respiratory acidosis stepped [place] [facility] [place] Metabolic encephalopathy due to acute/chronic hypercarbic/hypoxic respiratory f ailure, likely secondary to undiagnosed ANDREA/OHS - BiPAP at night, Pulm following, suppl O2 to keep SaO2 88-92%. Pulmonary recommends obtain overnight oximetry to qualify patient for CPAP at discharge. Patient would benefit from a formal sleep study and possible titration study on the ambulatory side. Was attempted last night but due to hypoxia had to be put back on BiPAP During daytime patient is asymptomatic 2. R-sided HF/cor pulmonale continue with IV furosemide Echo showed: The left ventricular systolic function is normal. The visually estimated ejection fraction is between 65-70%. - E/E prime ratio is >15, consistent with elevated filling pressures. Evidence suggests grade I (mild) diastolic dysfunction. - There is mild mitral annular calcification. - Gradients across aortic valve are increased but likely from increased stroke volume. No significant aortic stenosis. - Mild pulmonary hypertension is present. - The inferior vena cava is mildly dilated and collapses greater than 50% with inspiration. possible Staphylococcus bacteremia- ? staph capitis - could be contaminant holding vancomycin and will monitor acute conjunctivitis- erythromycin ointment HTN- continue amlodipine, carvedilol obesity- weight loss counseling
[2020-10-01] VITALS (11 sets, daily range): BP systolic 125–160; BP diastolic 65–85; PULSE 58–69; RESP 16–18; TEMP 36.2–37; O2SAT 2–99
[2020-10-01 06:46] LABS: MANUAL DIFF FLAG NO
[2020-10-01 06:47] LABS: Basophils Percent Auto 0.7 % (0-2); Eosinophils Absolute Auto 0.2 X10*3/uL (0.0-0.4); Hematocrit 42.9 % (37-47); Hemoglobin 12.6 g/dl (12.0-16.0); Lymphocytes Absolute Auto 1.4 X10*3/uL (1.2-4.9); Lymphocytes Percent Auto 33.7 % (20-40); Mean Corpuscular HGB Conc 29.4 g/dl (31.0-35.0); Mean Corpuscular Hemoglobin 27.9 pg (27.0-33.0); Mean Corpuscular Volume 95.1 fL (80-98); Mean Platelet Volume 11.9 fL (9.4-12.3); Monocytes Absolute Auto 0.6 X10*3/uL (0.1-1.2); Monocytes Percent Auto 15.2 % (2-11); Neutrophils Absolute Auto 1.8 X10*3/uL (2.0-8.3); Neutrophils Percent Auto 44.4 % (45-73); Red Blood Count 4.51 X10*6/uL (4.20-5.50); Red Cell Distribution Width 14.2 % (11.0-16.0)
[2020-10-01 06:48] LABS: Platelet Count 89 X10*3/uL (160-400)
[2020-10-01 07:30] LABS: Anion Gap 9 (12-20); Blood Urea Nitrogen 44 mg/dL (9-16); Calcium 9.4 mg/dL (8.4-10.2); Carbon Dioxide 38 mmol/L (22-29); Chloride 100 mmol/L (96-108); Creatinine Clr Calc Pharmacy 69.7; Estimated Glomerular Filt Rate 58; Glucose Fasting 86 mg/dL (60-99); Potassium 4.6 mmol/L (3.3-5.1); Sodium 142 mmol/L (135-145)
[2020-10-01] MEDS: Albuterol/Iprat 2.5/0.5MG 3 ML AMPUL.NEB INHALE ×4 (07:44→19:42)
[2020-10-01] MEDS: Famotidine/PF 20 MG/2 ML VIAL IVPUSH ×2 (10:26→20:39)
[2020-10-01] MEDS: amLODIPine Besylate 10 MG TABLET PO (10:26)
[2020-10-01] MEDS: carvediloL 12.5 MG TABLET PO ×2 (10:26→20:39)
[2020-10-01] MEDS: Erythromycin Base 0.5% Oph Oin 1 GM TUBE 1 CM EYE-RIGHT ×2 (10:26→18:03)
[2020-10-01] MEDS: Furosemide 40 MG/4 ML VIAL IVPUSH (10:26)
[2020-10-01] MEDS: Nystatin Powder 15 GM BOTTLE 1 APPL TOPICAL ×2 (10:27→20:40)
--- NOTE | 2020-10-01 12:18 | MHC.CM.PN ---
Addendum entered by Lila Solo 10/01/20 16:11: CM attempted to call PCP in [facility], office has closed early for week end. Also attampted to [facility] at [phone] to make a referral, office is also closed. Original Note: CM met with patient and dtr Guerita to discuss discharge plan. Patient will be discharging home to [address] [place] [address]. Dtr Guerita will be providing transport. Patient's MD will be Dr Tabitha Jeffers [phone], fax [phone]. Patient will go home with O2 and Bipap from [facility] here then RT will transfer care to [facility] in [facility]. Patient is agreeable to referral for VNA services. Instructed CM will follow up on that and let them know. CM will continue to follow patient for discharge needs.
--- NOTE | 2020-10-01 12:40 | P.PNIM_ITS ---
Subjective Subjective Date of Service: 10/01/20 Interval History: feeling fine Cardiovascular Cardiovascular: Reports no additional cardiovascular complaints Gastrointestinal Gastrointestinal: Reports no additional gastrointestinal complaints Physical Exam Vital Signs: Vital Signs: Last Vital Signs Temp 97.2 F 10/01/20 11:52 Pulse 60 10/01/20 11:52 Resp 18 10/01/20 11:52 BP 147/85 H 10/01/20 11:52 Pulse Ox 91 L 10/01/20 11:52 Body Mass Index 43.9 Const General: cooperative HENMT Head: Yes normal to inspection Mouth: Normal oral and palatal mucosa present Throat: Yes posterior oropharynx normal Resp Effort & Inspection: normal respiratory effort Cardio Rate: regular rate GI Palpation (GI): Soft to palpation and nontender General: Yes no CVA tenderness Back/Spine/Pelvis Back: no CVA tenderness Objective Data Current Medications Generic Name Dose Route Start Last Admin Trade Name Freq PRN Reason Stop Dose Admin Albuterol/Ipratropium 3 ml 09/26/20 08:00 10/01/20 11:14 Albuterol/Iprat 2.5/0.5mg 3 Ml Ampul.Neb INHALE 3 ml RQ4H WHILE AWAKE CANDIE Administration Amlodipine Besylate 10 mg 09/25/20 20:20 10/01/20 10:26 Amlodipine Besylate 10 Mg Tablet PO 10 mg DAILY CANDIE Administration Protocol Carvedilol 12.5 mg 09/25/20 20:20 10/01/20 10:26 Carvedilol 12.5 Mg Tablet PO 12.5 mg BID CANDIE Administration Protocol Erythromycin 1 cm 09/24/20 18:00 10/01/20 10:26 Erythromycin Base 0.5% Oph Oin 1 Gm Tube EYE-RIGHT 1 cm BID@0800,1800 CANDIE Administration Famotidine 20 mg 09/24/20 21:00 10/01/20 10:26 Famotidine/Pf 20 Mg/2 Ml Vial IVPUSH 20 mg BID CANDIE Administration Furosemide 40 mg 09/26/20 12:50 10/01/20 10:26 Furosemide 40 Mg/4 Ml Vial IVPUSH 40 mg DAILY CANDIE Administration Protocol Nystatin 1 appl 09/25/20 09:00 10/01/20 10:27 Nystatin Powder 15 Gm Bottle TOPICAL 1 appl BID CANDIE Administration Protocol Pharmacy Consult 1 each 09/24/20 13:49 Consult Rx Perform Med Rec MISCELLANE ONCE PRN Consult order Pharmacy Consult 1 each 09/26/20 16:02 Consult Rx Vancomycin Dosing MISCELLANE DAILY PRN Consult order Labs CBC & Chem 7: 10/01/20 05:28 10/01/20 05:28 Microbiology Microbiology Results: Microbiology 09/24/20 15:32 Blood - Venous Blood Culture - Final Staphylococcus capitis 09/24/20 15:19 Blood - Venous Blood Culture - Final Staphylococcus capitis Assessment and Plan (1) Cor pulmonale: Status: Acute (2) Diastolic dysfunction: Status: Acute Assessment and Plan: 74yo morbidly obese F with HTN who presented to the ED with conjunctivitis and per had some confusion, found to be markedly hypoxia with SaO2% and in retrospect has had worsening subacute GRAVES likely due to undiagnosed R-sided HF from ANDREA/OHS admitted to the ICU on biPAP for respiratory acidosis [place] [facility] [place] Metabolic encephalopathy due to acute/chronic hypercarbic/hypoxic respiratory failure, likely secondary to undiagnosed ANDREA/OHS - BiPAP at night, Pulm following, suppl O2 to keep SaO2 88-92%. Pulmonary recommends obtain overnight oximetry to qualify patient for CPAP at discharge. Patient would benefit from a formal sleep study and possible titration study on the ambulatory side. Was attempted but due to hypoxia had to be put back on BiPAP During daytime patient is asymptomatic saturationg low 90s on 2L R-sided HF/cor pulmonale continue with IV furosemide Echo showed: The left ventricular systolic function is normal. The visually estimated ejection fraction is between 65-70%. - E/E prime ratio is >15, consistent with elevated filling pressures. Evidence suggests grade I (mild) diastolic dysfunction. - There is mild mitral annular calcification. - Gradients across aortic valve are increased but likely from increased stroke volume. No significant aortic stenosis. - Mild pulmonary hypertension is present. - The inferior vena cava is mildly dilated and collapses greater than 50% with inspiration. possible Staphylococcus bacteremia- ? staph capitis - could be likely contaminant, no further fevers, will observe one more day off abx acute conjunctivitis- erythromycin ointment HTN- continue amlodipine, carvedilol obesity- weight loss counseling
[2020-10-02] VITALS (10 sets, daily range): BP systolic 138–139; BP diastolic 62–82; PULSE 57–90; RESP 14–16; TEMP 36.7–36.8; O2SAT 62–99
[2020-10-02 06:16] LABS: Hematocrit 42.5 % (37-47); Imm Gran Abs Auto 0.01 X10*3/uL (0.00-0.03); Imm Gran Pct Auto 0.2 % (0.0-0.4); Mean Corpuscular Volume 94.4 fL (80-98); Monocytes Absolute Auto 0.6 X10*3/uL (0.1-1.2); Monocytes Percent Auto 15.3 % (2-11); PLT CLUMP 1; SCAN SMEAR FLAG 1
[2020-10-02 06:18] LABS: Eosinophils Absolute Auto 0.2 X10*3/uL (0.0-0.4); Eosinophils Percent Auto 5.8 % (0-4); Hemoglobin 12.4 g/dl (12.0-16.0); Lymphocytes Absolute Auto 1.2 X10*3/uL (1.2-4.9); Lymphocytes Percent Auto 28.2 % (20-40); Mean Corpuscular HGB Conc 29.2 g/dl (31.0-35.0); Mean Corpuscular Hemoglobin 27.6 pg (27.0-33.0); Mean Platelet Volume 11.3 fL (9.4-12.3); Neutrophils Percent Auto 49.5 % (45-73); White Blood Count 4.1 X10*3/uL (4.8-10.8)
[2020-10-02 06:19] LABS: Platelet Count 91 X10*3/uL (160-400)
[2020-10-02 06:20] LABS: MANUAL DIFF FLAG NO
[2020-10-02 06:38] LABS: Anion Gap 9 (12-20); Blood Urea Nitrogen 44 mg/dL (9-16); Calcium 9.7 mg/dL (8.4-10.2); Carbon Dioxide 38 mmol/L (22-29); Chloride 100 mmol/L (96-108); Creatinine Clr Calc Pharmacy 70.5; Estimated Glomerular Filt Rate 58; Glucose Fasting 98 mg/dL (60-99); Potassium 4.8 mmol/L (3.3-5.1); Sodium 142 mmol/L (135-145)
[2020-10-02] MEDS: Albuterol/Iprat 2.5/0.5MG 3 ML AMPUL.NEB INHALE ×2 (08:02→12:15)
[2020-10-02] MEDS: carvediloL 12.5 MG TABLET PO (08:23)
[2020-10-02] MEDS: amLODIPine Besylate 10 MG TABLET PO (08:24)
[2020-10-02] MEDS: Furosemide 40 MG TABLET PO (08:24)
[2020-10-02] MEDS: Nystatin Powder 15 GM BOTTLE 1 APPL TOPICAL (08:25)
[2020-10-02] MEDS: Erythromycin Base 0.5% Oph Oin 1 GM TUBE 1 CM EYE-RIGHT (08:26)
[2020-10-02] MEDS: Famotidine/PF 20 MG/2 ML VIAL IVPUSH (08:26)
--- NOTE | 2020-10-02 10:00 | P.F2F_ITS ---
Service Date Service Date: 10/02/20 Reasons for Services Reason for fpc: teach disease management and other Reason for physical therapy: home safety and mobility, therapeutic exercises, gait/transfer training and energy conservation Homebound: Leaving the home is medically contraindicated at this time without the asist of a device and/or another person due th the listed conditions above and below. Reason homebound: weakness related to hospital stay Certification: Based on the above findings, I certify that this patient is conf ined to the home and needs intermittent fpc care, physical therapy and/or speech therapy, or continues to need occupational therapy. The patient is under my care, and I have initiated the establishment of the plan of care. The patient will be followed by a physician who will periodically review the plan of care.
--- NOTE | 2020-10-02 10:00 | PM.DS ---
DS: Providers Provider Date of Service: 10/02/20 Date of admission: 09/24/20 17:37 Primary care physician: Rowena Aranda NP Consults: 09/26/20 12:49 Consult to Pulmonology Routine Consulting [place] [facility] [facility] Reason for consultation: undiagnosed ANDREA/OHS, chronic resp acid, needs biPAP 09/28/20 18:56 Consult to Infectious Diseases Routine Consulting Provider: Sheila Bunn Reason for consultation: staph capitis Has provider been notified: No DS: Diagnosis Discharge Diagnosis (1) Cor pulmonale: Status: Acute (2) Diastolic dysfunction: Status: Acute (3) Pulmonary hypertension: Status: Acute (4) Obstructive sleep apnea: Status: Acute (5) Obesity hypoventilation syndrome: Status: Acute (6) Acute respiratory failure with hypoxia and hypercapnia: Status: Acute (7) Metabolic encephalopathy: Status: Acute DS: Medications Discharge Medications Home Medications: Home Medications Medication Instructions Recorded Confirmed amlodipine 10 mg PO DAILY 09/24/20 09/24/20 carvedilol 12.5 mg PO BID 09/24/20 09/24/20 lisinopril 40 mg PO DAILY 09/24/20 09/24/20 Previous Rx's Medication Instructions Recorded albuterol sulfate [Ventolin HFA] 1 inh INHALATION QID PRN #8.5 g 10/02/20 furosemide 40 mg PO DAILY #30 tab 10/02/20 walker #1 ea 10/02/20 DS: Summary Hospital Course Hospital Course: Patient presented with metabolic encephalopathy due to acute hypoxic and hypercapnic respiratory failure due to previously undiagnosed acute on chronic diastolic CHF with pulmonary hypertension. Patient was admitted to the intensive care unit for rescue BiPAP. She was also given IV Lasix for diuresis. This was successful in patient's mental status returned to baseline. When she was awake her oxygen requirements were minimal, only 1 L at rest which she will be going home with, for a goal oxygen saturation of about 92%. Echocardiogram showed EF of 65-70% with grade 1 diastolic dysfunction and mild pulmonary hypertension. Course was complicated by Staphylococcus capitis found in blood cultures. However, this was determined to be a contaminant and patient was observed off antibiotics and had no further fevers. Patient is now medically stable will be discharged home. She will started on Lasix 40 mg daily. She will be using noninvasive ventilation at night along with 1 L of O2 during the day. Time Spent with Patient Time attestation: Total time spent providing and/or coordinating discharge services: Discharge coordination time: Greater than 30 minutes Physical Exam Vital Signs: Vital Signs: Last Vital Signs Temp 98.1 F 10/02/20 07:49 Pulse 63 10/02/20 08:24 Resp 15 10/02/20 07:49 BP 138/62 10/02/20 08:24 Pulse Ox 91 L 10/02/20 07:49 Body Mass Index 43.9 General: AO X 3, no acute distress Resp: CTA bilateral CVS: S1,S2,RRR GI: soft, non tender, non distended Neuro: motor grossly intact Psych: appropriate affect DS: Data Data Completed and Pending Labs on day of discharge: Laboratory Results - last 24 hr 10/02/20 10/02/20 05:38 05:38 WBC 4.1 L RBC 4.50 Hgb 12.4 Hct 42.5 MCV 94.4 MCH 27.6 MCHC 29.2 L RDW 14.0 Plt Count 91 L MPV 11.3 Immature Gran % (Auto) 0.2 Neut % (Auto) 49.5 Lymph % (Auto) 28.2 Mcduffie % (Auto) 15.3 H Eos % (Auto) 5.8 H Baso % (Auto) 1.0 Lymph # (Auto) 1.2 Mcduffie # (Auto) 0.6 Eos # (Auto) 0.2 Baso # (Auto) 0.0 Abs Immat Gran (auto) 0.01 Absolute Neuts (auto) 2.0 Absolute Nucleated RBC 0.000 Nucleated RBC % (auto) 0.0 Sodium 142 Potassium 4.8 Chloride 100 Carbon Dioxide 38 H Anion Gap 9 L BUN 44 H Creatinine 0.94 Estim Creat Clear Calc 70.5 Estimated GFR 58 Fasting Glucose 98 Calcium 9.7 Discharge Plan Discharge Patient Disposition: Home Health Service Referrals: [facility] [Other] (A NURSE WILL CALL YOU TO SCHEDULE A TIME TO INITIATE SERVICES ) Rowena Aranda NP [Primary Care Provider] - Discharge Medications: New furosemide 40 mg Tablet 40 mg PO DAILY Qty: 30 RF: 0 albuterol sulfate [Ventolin HFA] 90 mcg/actuation HFA aerosol inhaler 1 inh inhalation QID PRN (Reason: sob) Qty: 8.5 RF: 0 (DME) walker Misc See Rx Instructions .ROUTE .MEDSUPPLY Qty: 1 RF: 0 Continued carvedilol 12.5 mg tablet 12.5 mg PO BID RF: 0 amlodipine 10 mg tablet 10 mg PO DAILY RF: 0 lisinopril 40 mg tablet 40 mg PO DAILY RF: 0 Discharge Orders: Discharge Order (Routine); Ordered 10/02/20 Ordered By: Deshawn Winkler Diet: advance to usual diet Activity on Discharge: As tolerated Stand Alone Forms: Patient Portal Discharge page Care Plan Goals: avoid hospitalization Health Concerns: OHS/pulmonary htn, chf Plan of Treatment: NIV at night, o2 during day, started lasix
--- NOTE | 2020-10-02 10:07 | MHC.CM.PN ---
Addendum entered by Leeann Louis 10/02/20 11:57: PTS NEW ADDRESS WAS SENT TO [facility]: [address] [facility] [id number]. Addendum entered by Leeann Louis 10/02/20 10:26: DC PLAN AND SECOND IMM REVIEWED WITH PT. PT IS IN AGREEMENT WITH DC PLAN/DATE. PT IS ALSO AWARE SHE WILL BE MEETING WITH HER DAUGHTER AND A [facility] REP AROUND 11:30 FOR A TEACHING. CM EXPLAINED THE IMPORTANCE OF FEELING COMFORTABLE WITH THE EQUIPMENT AND INFORMED HER AND DAUGHTER THAT THE VISITING NURSE WOULD LIKELY NOT START FOR 48-72 HOURS. Original Note: CM CALLED PTS DAUGHTER, LEO ([phone]) TO DISCUSS PTS DC. PT WILL BE GOING HOME WITH NEW O2 AND BIPAP AND WILL NEED A VISITING NURSE. LEO REPORTS SHE SPOKE TO [facility] AND THEY WILL BE ABLE TO DELIVER EQUIPMENT TO PTS NEW HOME IN [facility] TODAY. CM MADE REFERRALS AND [facility] ACCEPTED. LEO REPORTED SHE RECEIVED A CALL FROM OTIS AT [facility] WHO INDICATED HE WOULD BE AT [facility] [place] 11:30 WITH EQUIPMENT TO PROVIDE BEDSIDE TEACHING. LEO WILL BE THERE WELL AND PLANS TO TAKE PT HOME FOLLOWING THE EDUCATION. PT WILL DISCHARGE TO HER NEW HOME IN [facility] TODAY WITH NEW O2&BIPAP FROM [facility] AND NEW PRISON SERVICES TO BE PROVIDED BY [facility]. PTS DAUGHTER WILL PROVIDE TRANSPORT.
== END 2020-10-02 14:45 | disposition home health service (06) | DRG 291 ==
LOC: HO.ED 13:35 → HO.ICU 18:20 → HO.IMC 09-25 17:33
PROVIDERS: Family Medicine; Internal Medicine; Nurse Practitioner Family; Physician Assistant; Admitting Provider Internal Medicine Cardiovascular Disease; Emergency Provider Emergency Medicine Emergency Medical Services; PCP Nurse Practitioner Primary Care; Visit Provider Internal Medicine
DX: I50.33 Acute on chronic diastolic (congestive) heart failure (principal); J96.22 Acute and chronic respiratory failure with hypercapnia; G93.41 Metabolic encephalopathy; J96.21 Acute and chronic respiratory failure with hypoxia; E66.2 Morbid (severe) obesity with alveolar hypoventilation; Z68.41 Body mass index [BMI] 40.0-44.9, adult; I27.81 Cor pulmonale (chronic); H10.31 Unspecified acute conjunctivitis, right eye; D69.6 Thrombocytopenia, unspecified; I51.89 Other ill-defined heart diseases; E78.5 Hyperlipidemia, unspecified; Z20.822 Contact with and (suspected) exposure to COVID-19; Z79.899 Other long term (current) drug therapy
CPT/HCPCS: 0241U; 36415; 36600; 70450; 71046; 71250; 80048; 80076; 80202; 81001; 82947; 83605; 83735; 83880; 83935; 84100; 84300; 84484; 85025; 85027; 85610; 85652; 85730; 87040; 87077; 87186; 87205; 87633; 87635; 93005; 93306; 94660; 96374; 99285; 99291; J1940; J3370